=== PATIENT | male | born 1945 | race American Indian/Alaskan Native ===

== ENCOUNTER 2019-03-07 13:02 | Outpatient (CLI) | payer MEDICARE ==
[2019-03-07] MEDS ORDERED: AD OINTMENT TP SCH (14:00)
[2019-03-07] MEDS ORDERED: XYLOCAINE TOPICAL 4% TP ONE (14:00)
== END 2019-03-07 13:03 | disposition home or self-care (01) ==
LOC: WOUND 13:02
PROVIDERS: ATTEND Surgery
DX: E11.621 Type 2 diabetes mellitus with foot ulcer (principal); L97.422 Non-pressure chronic ulcer of left heel and midfoot with fat layer exposed; L97.511 Non-pressure chronic ulcer of other part of right foot limited to breakdown of skin; E11.622 Type 2 diabetes mellitus with other skin ulcer; L97.322 Non-pressure chronic ulcer of left ankle with fat layer exposed; L97.822 Non-pressure chronic ulcer of other part of left lower leg with fat layer exposed; I10 Essential (primary) hypertension
CPT/HCPCS: 11042; G0463; 99205; A6250

== ENCOUNTER 2019-03-08 06:13 | Inpatient (IN) | payer MEDICARE ==
[2019-03-08] MEDS ORDERED: PEPCID IV ONE ×2 (06:26→06:29)
[2019-03-08] MEDS ORDERED: BENADRYL IV ONE (06:26)
[2019-03-08] MEDS ORDERED: SOLU-Medrol IV ONE (06:26)
--- NOTE | 2019-03-08 06:26 | Emergency Department Report ---
ED Allergic Reaction HPI - General Stated complaint: ALLERGIC REACTION Time Seen by Provider: 03/08/19 06:20 Source: patient, family, EMS Mode of arrival: Stretcher Limitations: No Limitations - History of Present Illness Initial Comments: Patient is a 73-year-old male presents to emergency room with complaints of allergic reaction. Patient states she is having tongue swelling after taking Levaquin and Lasix. Patient states he's been able to take Cipro in the past without problems. Patient states she has never taken Levaquin or Lasix. Patient states he took the Levaquin at 12 noon yesterday and didn't notice any problems. Patient states he took Lasix last night at 6 PM and woke up this morning with this reaction. Patient states he is taking Levaquin for cellulitis of lower extremities and taking Lasix for edema of both extremities. Patient states his primary care gave the medications. Patient states his primary is Charbel Tovar. Patient states he only took his EpiPen at home Patient denies shortness of breath. Patient denies difficulty breathing. Patient denies throat pain. Patient denies rash. MD Complaint: allergic reaction -: Sudden Exposure: medication Symptoms: lip swelling, difficulty swallowing. denies: difficulty breathing, orolingual swelling, hoarseness, syncopy, dizziness, nausea, vomiting Severity: severe Treatment Prior to Arrival: none Previous Allergy History: angioedema (due to lisinopril) - Related Data Home Medications Medication Instructions Recorded Confirmed Last Taken Acetaminophen/Diphenhydramine 1 each PO PRN PRN 03/08/19 03/08/19 03/07/19 10:00 [Tylenol Pm Ex-Strength Caplet] AtorvaSTATin [Lipitor] 40 mg PO QHS 03/08/19 03/08/19 Unknown Carvedilol [Coreg] 12.5 mg PO BID 03/08/19 03/08/19 Unknown Ibuprofen [Motrin] 400 mg PO Q8H PRN 03/08/19 03/08/19 Unknown Potassium Chloride [K-Dur] 10 meq PO QDAY 03/08/19 03/08/19 Unknown Rivaroxaban [Xarelto] 20 mg PO QDAY 03/08/19 03/08/19 Unknown amLODIPine [Norvasc] 10 mg PO DAILY 03/08/19 03/08/19 Unknown traMADol [Ultram] 50 mg PO PRN PRN 03/08/19 03/08/19 Unknown Allergies Allergy/AdvReac Type Severity Reaction Status Date / Time amoxicillin [From Augmentin] Allergy Swelling Verified 03/08/19 06:34 apixaban [From Eliquis] Allergy Swelling Verified 03/08/19 06:34 clavulanic acid Allergy Swelling Verified 03/08/19 06:34 [From Augmentin] furosemide [From Lasix] Allergy Swelling Verified 03/08/19 12:39 levofloxacin Allergy Swelling Verified 03/08/19 12:39 lisinopril Allergy Swelling Verified 03/08/19 06:34 ED Review of Systems ROS: Stated complaint: ALLERGIC REACTION Other details as noted in HPI Constitutional: denies: chills, fever Eyes: denies: eye pain, eye discharge, vision change ENT: denies: ear pain, throat pain Respiratory: denies: cough, shortness of breath, wheezing Cardiovascular: denies: chest pain, palpitations Endocrine: no symptoms reported Gastrointestinal: denies: abdominal pain, nausea, diarrhea Genitourinary: denies: urgency, dysuria Musculoskeletal: denies: back pain, joint swelling, arthralgia Skin: denies: rash, lesions Neurological: denies: headache, weakness, paresthesias Psychiatric: denies: anxiety, depression Hematological/Lymphatic: denies: easy bleeding, easy bruising ED Past Medical Hx - Past Medical History Previous Medical History?: Yes Hx Hypertension: Yes Hx Diabetes: Yes Additional medical history: Afib - Surgical History Past Surgical History?: Yes Additional Surgical History: Pancreas surg - Family History Family history: no significant - Social History Smoking Status: Never Smoker Substance Use Type: None - Medications Home Medications: Home Medications Medication Instructions Recorded Confirmed Last Taken Type Acetaminophen/Diphenhydramine 1 each PO PRN PRN 03/08/19 03/08/19 03/07/19 10:00 History [Tylenol Pm Ex-Strength Caplet] AtorvaSTATin [Lipitor] 40 mg PO QHS 03/08/19 03/08/19 Unknown History Carvedilol [Coreg] 12.5 mg PO BID 03/08/19 03/08/19 Unknown History Ibuprofen [Motrin] 400 mg PO Q8H PRN 03/08/19 03/08/19 Unknown History Potassium Chloride [K-Dur] 10 meq PO QDAY 03/08/19 03/08/19 Unknown History Rivaroxaban [Xarelto] 20 mg PO QDAY 03/08/19 03/08/19 Unknown History amLODIPine [Norvasc] 10 mg PO DAILY 03/08/19 03/08/19 Unknown History traMADol [Ultram] 50 mg PO PRN PRN 03/08/19 03/08/19 Unknown History ED Physical Exam - General Limitations: No Limitations General appearance: alert, in no apparent distress - Head Head exam: Present: atraumatic, normocephalic - Eye Eye exam: Present: normal appearance, PERRL Pupils: Present: normal accommodation - ENT ENT exam: Present: normal orophraynx (except for swollen tongue), mucous membranes moist - Neck Neck exam: Present: normal inspection - Respiratory Respiratory exam: Present: normal lung sounds bilaterally. Absent: respiratory distress, wheezes, rales, rhonchi, stridor, accessory muscle use - Cardiovascular Cardiovascular Exam: Present: regular rate, normal rhythm. Absent: systolic murmur, diastolic murmur, rubs, gallop - GI/Abdominal GI/Abdominal exam: Present: soft, normal bowel sounds. Absent: distended, tenderness - Rectal Rectal exam: Present: deferred - Extremities Exam Extremities exam: Present: normal inspection - Back Exam Back exam: Present: normal inspection - Neurological Exam Neurological exam: Present: alert, oriented X3 - Psychiatric Psychiatric exam: Present: normal affect, normal mood - Skin Skin exam: Present: warm, dry, intact, normal color. Absent: rash ED Course Vital Signs 03/08/19 03/08/19 03/08/19 06:24 06:25 06:31 Temperature 98.7 F Pulse Rate 76 71 73 Respiratory 14 15 18 Rate Blood Pressure 117/68 122/63 Blood Pressure 117/76 [Right] O2 Sat by Pulse 82 L 98 98 Oximetry 03/08/19 03/08/19 03/08/19 06:45 07:00 07:15 Temperature Pulse Rate 66 63 61 Respiratory 13 14 14 Rate Blood Pressure 118/64 122/58 119/56 Blood Pressure [Right] O2 Sat by Pulse 100 99 99 Oximetry 03/08/19 03/08/19 03/08/19 07:30 07:45 08:00 Temperature Pulse Rate 62 62 65 Respiratory 14 14 17 Rate Blood Pressure 118/60 115/58 123/66 Blood Pressure [Right] O2 Sat by Pulse 100 100 99 Oximetry 03/08/19 03/08/19 03/08/19 08:15 08:30 08:45 Temperature Pulse Rate 59 L 60 57 L Respiratory 14 11 L 12 Rate Blood Pressure 122/62 130/65 116/61 Blood Pressure [Right] O2 Sat by Pulse 99 100 98 Oximetry 03/08/19 03/08/19 03/08/19 09:00 09:15 09:31 Temperature Pulse Rate 59 L 59 L 63 Respiratory 13 13 17 Rate Blood Pressure 121/54 109/56 113/66 Blood Pressure [Right] O2 Sat by Pulse 99 98 100 Oximetry 03/08/19 03/08/19 03/08/19 09:45 10:00 10:15 Temperature Pulse Rate 59 L 59 L 65 Respiratory 12 14 16 Rate Blood Pressure 119/61 114/55 122/67 Blood Pressure [Right] O2 Sat by Pulse 96 99 100 Oximetry 03/08/19 03/08/19 03/08/19 10:30 10:45 11:00 Temperature Pulse Rate 59 L 61 61 Respiratory 15 11 L 15 Rate Blood Pressure 129/64 120/65 131/65 Blood Pressure [Right] O2 Sat by Pulse 100 99 97 Oximetry 03/08/19 03/08/19 03/08/19 11:15 11:30 11:45 Temperature Pulse Rate 66 65 66 Respiratory 21 15 15 Rate Blood Pressure 136/72 137/69 133/73 Blood Pressure [Right] O2 Sat by Pulse 99 97 98 Oximetry 03/08/19 03/08/19 12:00 12:28 Temperature 98.2 F Pulse Rate 64 67 Respiratory 17 18 Rate Blood Pressure 137/71 128/70 Blood Pressure [Right] O2 Sat by Pulse 99 96 Oximetry - Reevaluation(s) Reevaluation #1: Patient will be given Medrol, Pepcid, and Benadryl 03/08/19 06:35 Patient states he is feeling better. No change noted in the size of the patient's tongue. No respiratory distress or stridor noted 03/08/19 07:10 Discussed all results with patient. Patient will be admitted to the hospitalist service. Patient agrees to plan of care. 03/08/19 09:48 - Consultations Consultation #1: Hospitalist consulted for admission. Hospitalist to admit patient. Hospitalist to assume care patient. Bridge orders placed 03/08/19 09:48 ED Medical Decision Making - Lab Data Result diagrams: 03/08/19 07:22 03/08/19 07:22 - Medical Decision Making Patient is a 73-year-old male presents emergency room with complaints of tongue swelling and angioedema. Patient having a reaction to Levaquin or Lasix. I feels most likely secondary to Lasix due to patient tolerating other f luoroquinolones. Patient given epi prior to arrival. Patient also given Solu- Medrol, Pepcid and Benadryl in the ER. Patient's tongue remains same size. Patient never had any difficulties breathing. Patient admitted for observation to the hospitalist service. Patient's labs are unremarkable except for low potassium. - Differential Diagnosis angioedema. Tongue swelling. Allergic reaction. Critical Care Time: Yes Critical care attestation.: If time is entered above; I have spent that time in minutes in the direct care of this critically ill patient, excluding procedure time. Critical Care Time: 35 minutes ED Disposition Clinical Impression: Tongue swelling, Hypokalemia Allergic reaction Qualifiers: Encounter type: initial encounter Qualified Code(s): T78.40XA - Allergy, unspecified, initial encounter Angioedema Qualifiers: Encounter type: initial encounter Qualified Code(s): T78.3XXA - Angioneurotic edema, initial encounter HTN (hypertension) Qualifiers: Hypertension type: essential hypertension Qualified Code(s): I10 - Essential (primary) hypertension Disposition: OP ADMIT IP TO THIS HOSP Is pt being admited?: Yes Does the pt Need Aspirin: No Condition: Critical Time of Disposition: 09:47
[2019-03-08] MEDS ORDERED: SOLU-Medrol ONE (06:28)
[2019-03-08] MEDS ORDERED: BENADRYL ONE ×2 (06:28→06:29)
[2019-03-08 07:32] LABS: Hematocrit 27.9 % (35.5-45.6); Hemoglobin 9.3 gm/dl (11.8-15.2); Mean Corpuscular HGB Conc 33 % (32-34); Mean Corpuscular Volume 80 fl (84-94); Platelet Count 484 K/mm3 (140-440); Red Blood Count 3.49 M/mm3 (3.65-5.03)
[2019-03-08 07:35] LABS: Red Cell Distribution Width 20.1 % (13.2-15.2)
[2019-03-08 07:56] LABS: Alanine Aminotransferase 11 units/L (7-56); Albumin 2.9 g/dL (3.9-5); BUN/Creatinine Ratio 10; Blood Urea Nitrogen 9 mg/dL (9-20); Calcium 8.3 mg/dL (8.4-10.2); Hemolysis Index 12
[2019-03-08] MEDS ORDERED: ZOFRAN IV PRN (11:09)
[2019-03-08] MEDS ORDERED: TYLENOL PO PRN (11:09)
[2019-03-08] MEDS ORDERED: BENADRYL IV PRN (11:09)
[2019-03-08] MEDS ORDERED: SODIUM CHLORIDE FLUSH SYRINGE 10 ML IV PRN (11:09)
[2019-03-08] MEDS ORDERED: D50W (25GM) Syringe IV PRN (11:09)
--- NOTE | 2019-03-08 11:09 | History and Physical Report ---
History of Present Illness Date of examination: 03/08/19 Date of admission: 03/08/19 10:17 History of present illness: Patient is a 73-year-old male presents to emergency room with complaints of allergic reaction. Patient states she is having tongue swelling after taking Levaquin and Lasix. Patient states he's been able to take Cipro in the past without problems. Patient states she has never taken Levaquin or Lasix. Patient states he took the Levaquin at 12 noon yesterday and didn't notice any problems. Patient states he took Lasix last night at 6 PM and woke up this morning with this reaction. Patient states he is taking Levaquin for cellulitis of lower extremities and taking Lasix for edema of both extremities. Patient states his primary care gave the medications. Patient states his primary is Charbel Tovar. Patient states he only took his EpiPen at home Past History Past Medical History: atrial fib, diabetes, hypertension, hyperlipidemia Past Surgical History: Other ( Pancreas surg) Social history: no significant social history Family history: no significant family history Medications and Allergies Allergies Allergy/AdvReac Type Severity Reaction Status Date / Time amoxicillin [From Augmentin] Allergy Swelling Verified 03/08/19 06:34 apixaban [From Eliquis] Allergy Swelling Verified 03/08/19 06:34 clavulanic acid Allergy Swelling Verified 03/08/19 06:34 [From Augmentin] lisinopril Allergy Swelling Verified 03/08/19 06:34 Home Medications Medication Instructions Recorded Confirmed Last Taken Type AtorvaSTATin [Lipitor] 40 mg PO QHS 03/08/19 03/08/19 Unknown History Carvedilol [Coreg] 12.5 mg PO BID 03/08/19 03/08/19 Unknown History Furosemide [Lasix TAB] 40 mg PO QDAY 03/08/19 03/08/19 Unknown History Ibuprofen [Motrin] 400 mg PO Q8H PRN 03/08/19 03/08/19 Unknown History Potassium Chloride [K-Dur] 10 meq PO QDAY 03/08/19 03/08/19 Unknown History Rivaroxaban [Xarelto] 20 mg PO QDAY 03/08/19 03/08/19 Unknown History amLODIPine [Norvasc] 10 mg PO DAILY 03/08/19 03/08/19 Unknown History levoFLOXacin [Levaquin] 750 mg PO QDAY 03/08/19 03/08/19 Unknown History traMADol [Ultram] 50 mg PO PRN PRN 03/08/19 03/08/19 Unknown History Review of Systems All systems: negative Exam - Constitutional Vitals: Temp Pulse Resp BP Pulse Ox 98.7 F 63 17 113/66 100 03/08/19 06:25 03/08/19 09:31 03/08/19 09:31 03/08/19 09:31 03/08/19 09:31 General appearance: Present: no acute distress, well-nourished - EENT Eyes: Present: PERRL ENT: hearing intact, clear oral mucosa - Neck Neck: Present: supple, normal ROM - Respiratory Respiratory effort: normal Respiratory: bilateral: CTA - Cardiovascular Heart Sounds: Present: S1 & S2. Absent: rub, click - Extremities Extremities: pulses symmetrical, No edema Peripheral Pulses: within normal limits - Abdominal General gastrointestinal: Present: soft, non-tender, non-distended, normal bowel sounds Male genitourinary: Present: normal - Integumentary Integumentary: Present: clear, warm, dry - Musculoskeletal Musculoskeletal: gait normal, strength equal bilaterally - Psychiatric Psychiatric: appropriate mood/affect, intact judgment & insight - Neurologic Neurologic: CNII-XII intact, moves all extremities Results - Labs CBC & Chem 7: 03/08/19 07:22 03/08/19 07:22 Labs: Laboratory Last Values WBC 13.9 K/mm3 (4.5-11.0) H 03/08/19 07:22 RBC 3.49 M/mm3 (3.65-5.03) L 03/08/19 07:22 Hgb 9.3 gm/dl (11.8-15.2) L 03/08/19 07:22 Hct 27.9 % (35.5-45.6) L 03/08/19 07:22 MCV 80 fl (84-94) L 03/08/19 07:22 MCH 27 pg (28-32) L 03/08/19 07:22 MCHC 33 % (32-34) 03/08/19 07:22 RDW 20.1 % (13.2-15.2) H 03/08/19 07:22 Plt Count 484 K/mm3 (140-440) H 03/08/19 07:22 Sodium 141 mmol/L (137-145) 03/08/19 07:22 Potassium 2.9 mmol/L (3.6-5.0) L* 03/08/19 07:22 Chloride 100.4 mmol/L (98-107) 03/08/19 07:22 Carbon Dioxide 28 mmol/L (22-30) 03/08/19 07:22 16 mmol/L 03/08/19 07:22 BUN 9 mg/dL (9-20) 03/08/19 07:22 0.9 mg/dL (0.8-1.5) 03/08/19 07:22 Estimated GFR > 60 ml/min 03/08/19 07:22 10 % 03/08/19 07:22 Glucose 144 mg/dL (75-100) H 03/08/19 07:22 POC Glucose 146 (70-105) H 03/08/19 08:11 Calcium 8.3 mg/dL (8.4-10.2) L 03/08/19 07:22 0.30 mg/dL (0.1-1.2) 03/08/19 07:22 AST 14 units/L (5-40) 03/08/19 07:22 ALT 11 units/L (7-56) 03/08/19 07:22 70 units/L (35-129) 03/08/19 07:22 6.9 g/dL (6.3-8.2) 03/08/19 07:22 2.9 g/dL (3.9-5) L 03/08/19 07:22 0.7 % 03/08/19 07:22 Assessment and Plan Assessment and plan: Angioedema/allergic reaction. Continue Solu-Medrol, Pepcid and Benadryl. Supportive care. Monitor for any respiratory decompensation or swallowing issues. Hypertension. Continue antihypertensive medications. Hyperlipidemia. Continue Lipitor. Diabetes mellitus type II. Continue Accu-Cheks, sliding scale insulin and ADA diet.
[2019-03-08] MEDS: HumuLIN R SUB-Q SCH ×3 (11:30→21:36)
[2019-03-08] MEDS: SODIUM CHLORIDE FLUSH SYRINGE 10 ML IV SCH (21:26)
[2019-03-08] MEDS: PEPCID IV SCH (21:26)
[2019-03-08] MEDS: SOLU-Medrol IV SCH (21:26)
[2019-03-09 06:55] LABS: Basophils % (Auto) 0.2 % (0.0-1.8); Hematocrit 30.8 % (35.5-45.6); Lymphocytes # (Auto) 1.1 K/mm3 (1.2-5.4); Lymphocytes % (Auto) 6.1 % (13.4-35.0); Mean Corpuscular HGB Conc 33 % (32-34); Mean Corpuscular Volume 81 fl (84-94); Monocytes % (Auto) 5.5 % (0.0-7.3); Platelet Count 533 K/mm3 (140-440)
[2019-03-09 07:10] LABS: BUN/Creatinine Ratio 15; Blood Urea Nitrogen 9 mg/dL (9-20); Calcium 8.8 mg/dL (8.4-10.2); Hemolysis Index 2
[2019-03-09 07:14] LABS: Red Cell Distribution Width 20.2 % (13.2-15.2)
[2019-03-09] MEDS: HumuLIN R SUB-Q SCH ×2 (08:15→12:16)
[2019-03-09 08:53] VITALS: BP 149/77
[2019-03-09] MEDS: PEPCID IV SCH (09:07)
[2019-03-09] MEDS: SOLU-Medrol IV SCH (09:08)
[2019-03-09] MEDS: SODIUM CHLORIDE FLUSH SYRINGE 10 ML IV SCH (09:08)
[2019-03-09] MEDS ORDERED: LOVENOX SUB-Q SCH (10:00)
--- NOTE | 2019-03-09 10:12 | Discharge Summary ---
Providers - Providers Date of Admission: 03/08/19 10:17 Date of discharge: 03/09/19 Attending physician: BECKY ANDERS Primary care physician: LAURA BLACK Hospitalization Reason for admission: allergic rxn/angioedema Condition: Critical Hospital course: Patient is a 73-year-old male presents to emergency room with complaints of allergic reaction. Patient stated he is having tongue swelling after taking Levaquin and Lasix. Patient states he's been able to take Cipro in the past without problems. Patient stated she has never taken Levaquin or Lasix. Patient stated he took the Levaquin at 12 noon the day [employer] and didn't notice any problems. Patient states he took Lasix the night [employer] at 6 PM and woke up the morning of admission with this reaction. Patient states he is taking Levaquin for cellulitis of lower extremities and taking Lasix for edema of both extremities. Patient states his primary care gave the medications. Patient states his primary is Charbel Liang. Patient states he only took his EpiPen at home. The patient was treated with IV Solu-Medrol, Pepcid and Benadryl. Patient has significant and dramatic improvement back to his baseline. Patient had no respiratory or swallowing issues. Therefore, patient is felt to have received maximal hospital benefit and will be discharged home. Dedicated discharge time 32 minutes. Disposition: - TO HOME OR SELFCARE Time spent for discharge: 32 - Discharge Diagnoses (1) Allergic reaction Status: Acute Qualifiers: Encounter type: initial encounter Qualified Code(s): T78.40XA - Allergy, unspecified, initial encounter (2) Angioedema Status: Acute Qualifiers: Encounter type: initial encounter Qualified Code(s): T78.3XXA - Angioneurotic edema, initial encounter (3) HTN (hypertension) Status: Acute Qualifiers: Hypertension type: essential hypertension Qualified Code(s): I10 - Essential (primary) hypertension (4) Tongue swelling Status: Acute (5) Diabetes mellitus type 1, uncontrolled, insulin dependent Status: Acute Core Measure Documentation - Palliative Care Palliative Care/ Comfort Measures: Not Applicable - Core Measures Any of the following diagnoses?: none Exam - Constitutional Vitals: Temp Pulse Resp BP Pulse Ox 98.5 F 78 18 149/77 98 03/09/19 07:17 03/09/19 08:53 03/09/19 08:53 03/09/19 07:17 03/09/19 08:53 General appearance: Present: no acute distress, well-nourished - EENT Eyes: Present: PERRL ENT: hearing intact, clear oral mucosa - Neck Neck: Present: supple, normal ROM - Respiratory Respiratory effort: normal Respiratory: bilateral: CTA - Cardiovascular Heart Sounds: Present: S1 & S2. Absent: rub, click - Extremities Extremities: pulses symmetrical, No edema Peripheral Pulses: within normal limits - Abdominal General gastrointestinal: Present: soft, non-tender, non-distended, normal bowel sounds Male genitourinary: Present: normal - Integumentary Integumentary: Present: clear, warm, dry - Musculoskeletal Musculoskeletal: gait normal, strength equal bilaterally - Psychiatric Psychiatric: appropriate mood/affect, intact judgment & insight - Neurologic Neurologic: CNII-XII intact, moves all extremities Plan Activity: advance as tolerated Weight Bearing Status: Weight Bear as Tolerated Diet: diabetic Follow up with: LAURA BLACK MD [Primary Care Provider] - 7 Days CHARBEL LIANG MD [Staff Physician] - 7 Days
== END 2019-03-09 12:25 | disposition home or self-care (01) | DRG 916 ==
LOC: ED 06:13 → 2B-ACE 10:17
PROVIDERS: ADMIT Hospitalist; ATTEND Hospitalist
DX: T78.3XXA Angioneurotic edema, initial encounter (principal); I10 Essential (primary) hypertension; T78.40XA Allergy, unspecified, initial encounter; I48.91 Unspecified atrial fibrillation; E11.9 Type 2 diabetes mellitus without complications; E78.5 Hyperlipidemia, unspecified; Z79.4 Long term (current) use of insulin; Z88.1 Allergy status to other antibiotic agents; Z79.899 Other long term (current) drug therapy
CPT/HCPCS: 36415; 80048; 80053; 82962; 85025; 85027; 87116; 96374; 96375; 99205; G0378; A6250; G0463; J1200; J1650; J1815; J2920; J2930

== ENCOUNTER 2019-03-14 08:51 | Outpatient (CLI) | payer MEDICARE ==
[2019-03-14] MEDS ORDERED: XYLOCAINE TOPICAL 4% TP ONE (09:30)
[2019-03-14] MEDS ORDERED: SILVER NITRATE TP ONE (09:30)
== END 2019-03-14 08:52 | disposition home or self-care (01) ==
LOC: WOUND 08:51
PROVIDERS: ATTEND Surgery
DX: T87.89 Other complications of amputation stump (principal); E11.621 Type 2 diabetes mellitus with foot ulcer; L97.522 Non-pressure chronic ulcer of other part of left foot with fat layer exposed; L97.511 Non-pressure chronic ulcer of other part of right foot limited to breakdown of skin; L97.422 Non-pressure chronic ulcer of left heel and midfoot with fat layer exposed; I10 Essential (primary) hypertension; Y83.5 Amputation of limb(s) as the cause of abnormal reaction of the patient, or of later complication, without mention of misadventure at the time of the procedure

== ENCOUNTER 2019-03-15 07:10 | Outpatient (CLI) | payer MEDICARE ==
--- NOTE | 2019-03-15 08:33 | XRay Report ---
ROUTINE CHEST, TWO VIEWS: HISTORY: Hyperbaric oxygen therapy. The trachea, heart, mediastinal contour, lung santos and bony thorax are unremarkable. IMPRESSION: Unremarkable chest x-ray.
== END 2019-03-15 07:11 | disposition home or self-care (01) ==
LOC: XRAY 07:10
PROVIDERS: ATTEND Surgery
DX: E11.621 Type 2 diabetes mellitus with foot ulcer (principal); L97.422 Non-pressure chronic ulcer of left heel and midfoot with fat layer exposed; I10 Essential (primary) hypertension
CPT/HCPCS: 71046

== ENCOUNTER 2019-03-18 07:39 | Outpatient (CLI) | payer MEDICARE | END 2019-03-18 07:40 | disposition home or self-care (01) | LOC: WOUND 07:39 | PROVIDERS: ATTEND Internal Medicine | DX: T87.89 Other complications of amputation stump (principal); E11.621 Type 2 diabetes mellitus with foot ulcer; L97.511 Non-pressure chronic ulcer of other part of right foot limited to breakdown of skin; L97.422 Non-pressure chronic ulcer of left heel and midfoot with fat layer exposed; I10 Essential (primary) hypertension; Y83.5 Amputation of limb(s) as the cause of abnormal reaction of the patient, or of later complication, without mention of misadventure at the time of the procedure | CPT/HCPCS: 82962; G0277; 99183 ==

== ENCOUNTER 2019-03-19 07:50 | Outpatient (CLI) | payer MEDICARE | END 2019-03-19 07:51 | disposition home or self-care (01) | LOC: WOUND 07:50 | PROVIDERS: ATTEND Surgery | DX: T87.89 Other complications of amputation stump (principal); E11.621 Type 2 diabetes mellitus with foot ulcer; L97.511 Non-pressure chronic ulcer of other part of right foot limited to breakdown of skin; L97.422 Non-pressure chronic ulcer of left heel and midfoot with fat layer exposed; I10 Essential (primary) hypertension; Y83.5 Amputation of limb(s) as the cause of abnormal reaction of the patient, or of later complication, without mention of misadventure at the time of the procedure | CPT/HCPCS: 82962; G0277; 99183 ==

== ENCOUNTER 2019-03-20 07:48 | Outpatient (CLI) | payer MEDICARE | END 2019-03-20 07:49 | disposition home or self-care (01) | LOC: WOUND 07:48 | PROVIDERS: ATTEND Surgery | DX: T87.89 Other complications of amputation stump (principal); E11.621 Type 2 diabetes mellitus with foot ulcer; L97.511 Non-pressure chronic ulcer of other part of right foot limited to breakdown of skin; L97.422 Non-pressure chronic ulcer of left heel and midfoot with fat layer exposed; I10 Essential (primary) hypertension; Y83.5 Amputation of limb(s) as the cause of abnormal reaction of the patient, or of later complication, without mention of misadventure at the time of the procedure | CPT/HCPCS: 82962; 99183; G0277 ==

== ENCOUNTER 2019-03-21 07:47 | Outpatient (CLI) | payer MEDICARE ==
[2019-03-21] MEDS ORDERED: XYLOCAINE TOPICAL 4% TP ONE (11:00)
== END 2019-03-21 07:48 | disposition home or self-care (01) ==
LOC: WOUND 07:47
PROVIDERS: ATTEND Surgery
DX: T87.89 Other complications of amputation stump (principal); E11.621 Type 2 diabetes mellitus with foot ulcer; L97.511 Non-pressure chronic ulcer of other part of right foot limited to breakdown of skin; L97.422 Non-pressure chronic ulcer of left heel and midfoot with fat layer exposed; I10 Essential (primary) hypertension; Y83.8 Other surgical procedures as the cause of abnormal reaction of the patient, or of later complication, without mention of misadventure at the time of the procedure
CPT/HCPCS: 11042; 11045; 82962; G0277; 99183

== ENCOUNTER 2019-03-22 07:46 | Outpatient (CLI) | payer MEDICARE | END 2019-03-22 07:47 | disposition home or self-care (01) | LOC: WOUND 07:46 | PROVIDERS: ATTEND Surgery | DX: T87.89 Other complications of amputation stump (principal); E11.621 Type 2 diabetes mellitus with foot ulcer; L97.511 Non-pressure chronic ulcer of other part of right foot limited to breakdown of skin; L97.422 Non-pressure chronic ulcer of left heel and midfoot with fat layer exposed; I10 Essential (primary) hypertension; Y83.8 Other surgical procedures as the cause of abnormal reaction of the patient, or of later complication, without mention of misadventure at the time of the procedure | CPT/HCPCS: 82962; 99183; G0277 ==

== ENCOUNTER 2019-03-25 07:57 | Outpatient (CLI) | payer MEDICARE | END 2019-03-25 07:58 | disposition home or self-care (01) | LOC: WOUND 07:57 | PROVIDERS: ATTEND Surgery | DX: T87.89 Other complications of amputation stump (principal); E11.621 Type 2 diabetes mellitus with foot ulcer; L97.511 Non-pressure chronic ulcer of other part of right foot limited to breakdown of skin; L97.422 Non-pressure chronic ulcer of left heel and midfoot with fat layer exposed; I10 Essential (primary) hypertension; Y83.8 Other surgical procedures as the cause of abnormal reaction of the patient, or of later complication, without mention of misadventure at the time of the procedure | CPT/HCPCS: 82962; 99183; G0277 ==

== ENCOUNTER 2019-03-26 07:49 | Outpatient (CLI) | payer MEDICARE | END 2019-03-26 07:50 | disposition home or self-care (01) | LOC: WOUND 07:49 | PROVIDERS: ATTEND Surgery | DX: E11.621 Type 2 diabetes mellitus with foot ulcer (principal); L97.422 Non-pressure chronic ulcer of left heel and midfoot with fat layer exposed; I10 Essential (primary) hypertension | CPT/HCPCS: 82962; G0277; 99183 ==

== ENCOUNTER 2019-03-27 07:47 | Outpatient (CLI) | payer MEDICARE | END 2019-03-27 07:48 | disposition home or self-care (01) | LOC: WOUND 07:47 | PROVIDERS: ATTEND Surgery | DX: E11.621 Type 2 diabetes mellitus with foot ulcer (principal); L97.422 Non-pressure chronic ulcer of left heel and midfoot with fat layer exposed; I10 Essential (primary) hypertension | CPT/HCPCS: 82962; G0277; 99183 ==

== ENCOUNTER 2019-03-28 07:56 | Outpatient (CLI) | payer MEDICARE ==
[2019-03-28] MEDS ORDERED: XYLOCAINE TOPICAL 4% TP ONE (11:36)
== END 2019-03-28 07:57 | disposition home or self-care (01) ==
LOC: WOUND 07:56
PROVIDERS: ATTEND Surgery
DX: T87.89 Other complications of amputation stump (principal); E11.621 Type 2 diabetes mellitus with foot ulcer; L97.422 Non-pressure chronic ulcer of left heel and midfoot with fat layer exposed; I10 Essential (primary) hypertension; Y83.5 Amputation of limb(s) as the cause of abnormal reaction of the patient, or of later complication, without mention of misadventure at the time of the procedure
CPT/HCPCS: 11042; 11045; 82962; G0277; 99183

== ENCOUNTER 2019-03-29 07:50 | Outpatient (CLI) | payer MEDICARE | END 2019-03-29 07:51 | disposition home or self-care (01) | LOC: WOUND 07:50 | PROVIDERS: ATTEND Surgery | DX: T87.89 Other complications of amputation stump (principal); E11.621 Type 2 diabetes mellitus with foot ulcer; L97.422 Non-pressure chronic ulcer of left heel and midfoot with fat layer exposed; I10 Essential (primary) hypertension; Y83.5 Amputation of limb(s) as the cause of abnormal reaction of the patient, or of later complication, without mention of misadventure at the time of the procedure | CPT/HCPCS: 82962; G0277; 99183 ==

== ENCOUNTER 2019-04-01 07:50 | Outpatient (CLI) | payer MEDICARE | END 2019-04-01 07:51 | disposition home or self-care (01) | LOC: WOUND 07:50 | PROVIDERS: ATTEND Surgery | DX: T87.89 Other complications of amputation stump (principal); E11.621 Type 2 diabetes mellitus with foot ulcer; L97.422 Non-pressure chronic ulcer of left heel and midfoot with fat layer exposed; I10 Essential (primary) hypertension; Y83.5 Amputation of limb(s) as the cause of abnormal reaction of the patient, or of later complication, without mention of misadventure at the time of the procedure | CPT/HCPCS: 82962; G0277; 99183 ==

== ENCOUNTER 2019-04-02 07:48 | Outpatient (CLI) | payer MEDICARE | END 2019-04-02 07:49 | disposition home or self-care (01) | LOC: WOUND 07:48 | PROVIDERS: ATTEND Surgery | DX: T87.89 Other complications of amputation stump (principal); E11.621 Type 2 diabetes mellitus with foot ulcer; L97.422 Non-pressure chronic ulcer of left heel and midfoot with fat layer exposed; I10 Essential (primary) hypertension; Y83.5 Amputation of limb(s) as the cause of abnormal reaction of the patient, or of later complication, without mention of misadventure at the time of the procedure | CPT/HCPCS: 82962; 99183; G0277 ==

== ENCOUNTER 2019-04-03 08:02 | Outpatient (CLI) | payer MEDICARE | END 2019-04-03 08:03 | disposition home or self-care (01) | LOC: WOUND 08:02 | PROVIDERS: ATTEND Surgery | DX: T87.89 Other complications of amputation stump (principal); E11.621 Type 2 diabetes mellitus with foot ulcer; L97.422 Non-pressure chronic ulcer of left heel and midfoot with fat layer exposed; I10 Essential (primary) hypertension; Y83.5 Amputation of limb(s) as the cause of abnormal reaction of the patient, or of later complication, without mention of misadventure at the time of the procedure | CPT/HCPCS: 82962; 99183; G0277 ==

== ENCOUNTER 2019-04-04 07:49 | Outpatient (CLI) | payer MEDICARE ==
[2019-04-04] MEDS ORDERED: XYLOCAINE TOPICAL 4% TP NR (10:00)
[2019-04-04] MEDS ORDERED: SILVER NITRATE TP NR (10:00)
== END 2019-04-04 07:50 | disposition home or self-care (01) ==
LOC: WOUND 07:49
PROVIDERS: ATTEND Surgery
DX: T87.89 Other complications of amputation stump (principal); E11.621 Type 2 diabetes mellitus with foot ulcer; L97.422 Non-pressure chronic ulcer of left heel and midfoot with fat layer exposed; I10 Essential (primary) hypertension; Y83.5 Amputation of limb(s) as the cause of abnormal reaction of the patient, or of later complication, without mention of misadventure at the time of the procedure
CPT/HCPCS: 11042; 11045; G0277; 82962; 99183

== ENCOUNTER 2019-04-05 07:57 | Outpatient (CLI) | payer MEDICARE | END 2019-04-05 07:58 | disposition home or self-care (01) | LOC: WOUND 07:57 | PROVIDERS: ATTEND Surgery | DX: E11.621 Type 2 diabetes mellitus with foot ulcer (principal); L97.422 Non-pressure chronic ulcer of left heel and midfoot with fat layer exposed; I10 Essential (primary) hypertension | CPT/HCPCS: 82962; G0277; 99183 ==

== ENCOUNTER 2019-04-08 07:59 | Outpatient (CLI) | payer MEDICARE | END 2019-04-08 08:00 | disposition home or self-care (01) | LOC: WOUND 07:59 | PROVIDERS: ATTEND Surgery | DX: E11.621 Type 2 diabetes mellitus with foot ulcer (principal); L97.422 Non-pressure chronic ulcer of left heel and midfoot with fat layer exposed; I10 Essential (primary) hypertension | CPT/HCPCS: 82962; G0277; 99183 ==

== ENCOUNTER 2019-04-09 07:54 | Outpatient (CLI) | payer MEDICARE | END 2019-04-09 07:55 | disposition home or self-care (01) | LOC: WOUND 07:54 | PROVIDERS: ATTEND Surgery | DX: E11.621 Type 2 diabetes mellitus with foot ulcer (principal); L97.422 Non-pressure chronic ulcer of left heel and midfoot with fat layer exposed; I10 Essential (primary) hypertension | CPT/HCPCS: 82962; 99183; G0277 ==

== ENCOUNTER 2019-04-10 07:48 | Outpatient (CLI) | payer MEDICARE ==
[2019-04-10] MEDS ORDERED: SILVER NITRATE TP ONE ×2 (10:57)
[2019-04-10] MEDS ORDERED: XYLOCAINE TOPICAL 4% TP ONE (11:00)
== END 2019-04-10 07:49 | disposition home or self-care (01) ==
LOC: WOUND 07:48
PROVIDERS: ATTEND Surgery
DX: T87.89 Other complications of amputation stump (principal); E11.621 Type 2 diabetes mellitus with foot ulcer; L97.422 Non-pressure chronic ulcer of left heel and midfoot with fat layer exposed; I10 Essential (primary) hypertension; Y83.5 Amputation of limb(s) as the cause of abnormal reaction of the patient, or of later complication, without mention of misadventure at the time of the procedure
CPT/HCPCS: 11042; 11045; 82962; G0277; 99183

== ENCOUNTER 2019-04-12 07:54 | Outpatient (CLI) | payer MEDICARE | END 2019-04-12 07:55 | disposition home or self-care (01) | LOC: WOUND 07:54 | PROVIDERS: ATTEND Surgery | DX: T87.89 Other complications of amputation stump (principal); E11.621 Type 2 diabetes mellitus with foot ulcer; L97.422 Non-pressure chronic ulcer of left heel and midfoot with fat layer exposed; I10 Essential (primary) hypertension; Y83.5 Amputation of limb(s) as the cause of abnormal reaction of the patient, or of later complication, without mention of misadventure at the time of the procedure | CPT/HCPCS: 82962; 99183; G0277 ==

== ENCOUNTER 2019-04-15 07:51 | Outpatient (CLI) | payer MEDICARE | END 2019-04-15 07:52 | disposition home or self-care (01) | LOC: WOUND 07:51 | PROVIDERS: ATTEND Surgery | DX: E11.621 Type 2 diabetes mellitus with foot ulcer (principal); L97.422 Non-pressure chronic ulcer of left heel and midfoot with fat layer exposed; I10 Essential (primary) hypertension | CPT/HCPCS: 82962; G0277; 99183 ==

== ENCOUNTER 2019-04-16 07:48 | Outpatient (CLI) | payer MEDICARE ==
[2019-04-16] MEDS ORDERED: SILVER NITRATE TP ONE (10:25)
[2019-04-16] MEDS ORDERED: XYLOCAINE TOPICAL 4% TP ONE (10:25)
== END 2019-04-16 07:49 | disposition home or self-care (01) ==
LOC: WOUND 07:48
PROVIDERS: ATTEND Surgery
DX: T87.89 Other complications of amputation stump (principal); E11.621 Type 2 diabetes mellitus with foot ulcer; L97.422 Non-pressure chronic ulcer of left heel and midfoot with fat layer exposed; I10 Essential (primary) hypertension; Y83.5 Amputation of limb(s) as the cause of abnormal reaction of the patient, or of later complication, without mention of misadventure at the time of the procedure
CPT/HCPCS: 11042; 11045; G0277; 82962; 99183

== ENCOUNTER 2019-04-17 07:48 | Outpatient (CLI) | payer MEDICARE | END 2019-04-17 07:49 | disposition home or self-care (01) | LOC: WOUND 07:48 | PROVIDERS: ATTEND Surgery | DX: T87.89 Other complications of amputation stump (principal); E11.621 Type 2 diabetes mellitus with foot ulcer; L97.422 Non-pressure chronic ulcer of left heel and midfoot with fat layer exposed; I10 Essential (primary) hypertension; Y83.5 Amputation of limb(s) as the cause of abnormal reaction of the patient, or of later complication, without mention of misadventure at the time of the procedure | CPT/HCPCS: 82962; G0277; 99183 ==

== ENCOUNTER 2019-04-19 07:55 | Outpatient (CLI) | payer MEDICARE | END 2019-04-19 07:56 | disposition home or self-care (01) | LOC: WOUND 07:55 | PROVIDERS: ATTEND Surgery | DX: T87.89 Other complications of amputation stump (principal); E11.621 Type 2 diabetes mellitus with foot ulcer; L97.422 Non-pressure chronic ulcer of left heel and midfoot with fat layer exposed; I10 Essential (primary) hypertension; Y83.5 Amputation of limb(s) as the cause of abnormal reaction of the patient, or of later complication, without mention of misadventure at the time of the procedure | CPT/HCPCS: 82962; 99183; G0277 ==

== ENCOUNTER 2019-04-22 07:44 | Outpatient (CLI) | payer MEDICARE | END 2019-04-22 07:45 | disposition home or self-care (01) | LOC: WOUND 07:44 | PROVIDERS: ATTEND Surgery | DX: T87.89 Other complications of amputation stump (principal); E11.621 Type 2 diabetes mellitus with foot ulcer; L97.422 Non-pressure chronic ulcer of left heel and midfoot with fat layer exposed; I10 Essential (primary) hypertension; Y83.5 Amputation of limb(s) as the cause of abnormal reaction of the patient, or of later complication, without mention of misadventure at the time of the procedure | CPT/HCPCS: 82962; G0277; 99183 ==

== ENCOUNTER 2019-04-23 09:49 | Outpatient (CLI) | payer MEDICARE | END 2019-04-23 09:50 | disposition home or self-care (01) | LOC: WOUND 09:49 | PROVIDERS: ATTEND Surgery | DX: T87.89 Other complications of amputation stump (principal); E11.621 Type 2 diabetes mellitus with foot ulcer; L97.422 Non-pressure chronic ulcer of left heel and midfoot with fat layer exposed; I10 Essential (primary) hypertension; Y83.5 Amputation of limb(s) as the cause of abnormal reaction of the patient, or of later complication, without mention of misadventure at the time of the procedure | CPT/HCPCS: 99183; G0277 ==

== ENCOUNTER 2019-04-24 07:49 | Outpatient (CLI) | payer MEDICARE | END 2019-04-24 07:50 | disposition home or self-care (01) | LOC: WOUND 07:49 | PROVIDERS: ATTEND Surgery | DX: T87.89 Other complications of amputation stump (principal); E11.621 Type 2 diabetes mellitus with foot ulcer; L97.422 Non-pressure chronic ulcer of left heel and midfoot with fat layer exposed; I10 Essential (primary) hypertension; Y83.5 Amputation of limb(s) as the cause of abnormal reaction of the patient, or of later complication, without mention of misadventure at the time of the procedure | CPT/HCPCS: 82962; G0277; 99183 ==

== ENCOUNTER 2019-04-25 06:54 | Outpatient (CLI) | payer MEDICARE ==
[2019-04-25] MEDS ORDERED: XYLOCAINE TOPICAL 4% TP ONE (10:00)
== END 2019-04-25 06:55 | disposition home or self-care (01) ==
LOC: WOUND 06:54
PROVIDERS: ATTEND Surgery
DX: T87.89 Other complications of amputation stump (principal); E11.621 Type 2 diabetes mellitus with foot ulcer; L97.422 Non-pressure chronic ulcer of left heel and midfoot with fat layer exposed; I10 Essential (primary) hypertension; Y83.5 Amputation of limb(s) as the cause of abnormal reaction of the patient, or of later complication, without mention of misadventure at the time of the procedure
CPT/HCPCS: 11042; 11045; 82962; G0277; 99183

== ENCOUNTER 2019-04-29 07:47 | Outpatient (CLI) | payer MEDICARE | END 2019-04-29 07:48 | disposition home or self-care (01) | LOC: WOUND 07:47 | PROVIDERS: ATTEND Surgery | DX: T87.89 Other complications of amputation stump (principal); E11.621 Type 2 diabetes mellitus with foot ulcer; L97.422 Non-pressure chronic ulcer of left heel and midfoot with fat layer exposed; I10 Essential (primary) hypertension; Y83.5 Amputation of limb(s) as the cause of abnormal reaction of the patient, or of later complication, without mention of misadventure at the time of the procedure | CPT/HCPCS: 82962; 99183; G0277 ==

== ENCOUNTER 2019-04-30 07:47 | Outpatient (CLI) | payer MEDICARE | END 2019-04-30 07:48 | disposition home or self-care (01) | LOC: WOUND 07:47 | PROVIDERS: ATTEND Surgery | DX: E11.621 Type 2 diabetes mellitus with foot ulcer (principal); L97.422 Non-pressure chronic ulcer of left heel and midfoot with fat layer exposed; I10 Essential (primary) hypertension | CPT/HCPCS: 82962; G0277; 99183 ==

== ENCOUNTER 2019-05-01 07:48 | Outpatient (CLI) | payer MEDICARE ==
[2019-05-01] MEDS ORDERED: SILVER NITRATE TP ONE (09:30)
[2019-05-01] MEDS ORDERED: XYLOCAINE TOPICAL 4% TP ONE (09:30)
[2019-05-01] MEDS ORDERED: AD OINTMENT TP PRN (11:30)
== END 2019-05-01 07:49 | disposition home or self-care (01) ==
LOC: WOUND 07:48
PROVIDERS: ATTEND Surgery
DX: E11.621 Type 2 diabetes mellitus with foot ulcer (principal); L97.422 Non-pressure chronic ulcer of left heel and midfoot with fat layer exposed; I10 Essential (primary) hypertension
CPT/HCPCS: 11042; 11045; 82962; G0277; 99183

== ENCOUNTER 2019-05-03 07:46 | Outpatient (CLI) | payer MEDICARE | END 2019-05-03 07:47 | disposition home or self-care (01) | LOC: WOUND 07:46 | PROVIDERS: ATTEND Surgery | DX: E11.621 Type 2 diabetes mellitus with foot ulcer (principal); L97.422 Non-pressure chronic ulcer of left heel and midfoot with fat layer exposed; I10 Essential (primary) hypertension | CPT/HCPCS: 82962; G0277; 99183 ==

== ENCOUNTER 2019-05-06 07:54 | Outpatient (CLI) | payer MEDICARE | END 2019-05-06 07:55 | disposition home or self-care (01) | LOC: WOUND 07:54 | PROVIDERS: ATTEND Surgery | DX: E11.621 Type 2 diabetes mellitus with foot ulcer (principal); L97.422 Non-pressure chronic ulcer of left heel and midfoot with fat layer exposed; I10 Essential (primary) hypertension | CPT/HCPCS: 82962; G0277; 99183 ==

== ENCOUNTER 2019-05-07 07:47 | Outpatient (CLI) | payer MEDICARE | END 2019-05-07 07:48 | disposition home or self-care (01) | LOC: WOUND 07:47 | PROVIDERS: ATTEND Surgery | DX: E11.621 Type 2 diabetes mellitus with foot ulcer (principal); L97.422 Non-pressure chronic ulcer of left heel and midfoot with fat layer exposed; I10 Essential (primary) hypertension | CPT/HCPCS: 82962; G0277; 99183 ==

== ENCOUNTER 2019-05-08 07:49 | Outpatient (CLI) | payer MEDICARE | END 2019-05-08 07:50 | disposition home or self-care (01) | LOC: WOUND 07:49 | PROVIDERS: ATTEND Surgery | DX: E11.621 Type 2 diabetes mellitus with foot ulcer (principal); L97.422 Non-pressure chronic ulcer of left heel and midfoot with fat layer exposed; I10 Essential (primary) hypertension | CPT/HCPCS: 11042; 82962; G0277; 99183 ==

== ENCOUNTER 2019-05-09 07:48 | Outpatient (CLI) | payer MEDICARE | END 2019-05-09 07:49 | disposition home or self-care (01) | LOC: WOUND 07:48 | PROVIDERS: ATTEND Surgery | DX: E11.621 Type 2 diabetes mellitus with foot ulcer (principal); L97.422 Non-pressure chronic ulcer of left heel and midfoot with fat layer exposed; I10 Essential (primary) hypertension | CPT/HCPCS: 82962; G0277; 99183 ==

== ENCOUNTER 2019-05-10 07:49 | Outpatient (CLI) | payer MEDICARE | END 2019-05-10 07:50 | disposition home or self-care (01) | LOC: WOUND 07:49 | PROVIDERS: ATTEND Surgery | DX: E11.621 Type 2 diabetes mellitus with foot ulcer (principal); L97.422 Non-pressure chronic ulcer of left heel and midfoot with fat layer exposed; I10 Essential (primary) hypertension | CPT/HCPCS: 82962; 99183; G0277 ==

== ENCOUNTER 2019-05-13 07:51 | Outpatient (CLI) | payer MEDICARE | END 2019-05-13 07:52 | disposition home or self-care (01) | LOC: WOUND 07:51 | PROVIDERS: ATTEND Surgery | DX: E11.621 Type 2 diabetes mellitus with foot ulcer (principal); L97.422 Non-pressure chronic ulcer of left heel and midfoot with fat layer exposed; I10 Essential (primary) hypertension | CPT/HCPCS: 82962; 99183; G0277 ==

== ENCOUNTER 2019-05-14 12:47 | Outpatient (CLI) | payer MEDICARE | END 2019-05-14 12:48 | disposition home or self-care (01) | LOC: WOUND 12:47 | PROVIDERS: ATTEND Surgery | DX: E11.621 Type 2 diabetes mellitus with foot ulcer (principal); L97.422 Non-pressure chronic ulcer of left heel and midfoot with fat layer exposed; I10 Essential (primary) hypertension | CPT/HCPCS: 82962; 99183; G0277 ==

== ENCOUNTER 2019-05-15 09:51 | Outpatient (CLI) | payer MEDICARE | END 2019-05-15 09:52 | disposition home or self-care (01) | LOC: WOUND 09:51 | PROVIDERS: ATTEND Surgery | DX: E11.621 Type 2 diabetes mellitus with foot ulcer (principal); L97.422 Non-pressure chronic ulcer of left heel and midfoot with fat layer exposed; I10 Essential (primary) hypertension | CPT/HCPCS: 82962; G0277; 99183 ==

== ENCOUNTER 2019-05-16 09:43 | Outpatient (CLI) | payer MEDICARE ==
[2019-05-16] MEDS ORDERED: XYLOCAINE TOPICAL 4% TP ONE (12:03)
[2019-05-16] MEDS ORDERED: SODIUM CHLORIDE FLUSH SYRINGE 10 ML IV ONE (12:04)
== END 2019-05-16 09:44 | disposition home or self-care (01) ==
LOC: WOUND 09:43
PROVIDERS: ATTEND Surgery
DX: T87.89 Other complications of amputation stump (principal); E11.621 Type 2 diabetes mellitus with foot ulcer; L97.422 Non-pressure chronic ulcer of left heel and midfoot with fat layer exposed; I10 Essential (primary) hypertension; Y83.5 Amputation of limb(s) as the cause of abnormal reaction of the patient, or of later complication, without mention of misadventure at the time of the procedure
CPT/HCPCS: 15275; 82962; G0277; Q4158; 99183

== ENCOUNTER 2019-05-23 08:54 | Outpatient (CLI) | payer MEDICARE ==
[2019-05-23] MEDS ORDERED: SODIUM CHLORIDE FLUSH SYRINGE 10 ML IV PRN (09:26)
[2019-05-23] MEDS ORDERED: XYLOCAINE TOPICAL 4% TP ONE (09:30)
[2019-05-23] MEDS ORDERED: SILVER NITRATE TP ONE (10:00)
== END 2019-05-23 08:55 | disposition home or self-care (01) ==
LOC: WOUND 08:54
PROVIDERS: ATTEND Surgery
DX: T87.89 Other complications of amputation stump (principal); E11.621 Type 2 diabetes mellitus with foot ulcer; L97.422 Non-pressure chronic ulcer of left heel and midfoot with fat layer exposed; I10 Essential (primary) hypertension; Y83.5 Amputation of limb(s) as the cause of abnormal reaction of the patient, or of later complication, without mention of misadventure at the time of the procedure
CPT/HCPCS: 15275; Q4158

== ENCOUNTER 2019-05-30 08:38 | Outpatient (CLI) | payer MEDICARE ==
[2019-05-30] MEDS ORDERED: XYLOCAINE TOPICAL 4% TP ONE (09:30)
[2019-05-30] MEDS ORDERED: SODIUM CHLORIDE FLUSH SYRINGE 10 ML IV ONE (10:00)
[2019-05-30] MEDS ORDERED: SILVER NITRATE TP ONE (10:00)
== END 2019-05-30 08:39 | disposition home or self-care (01) ==
LOC: WOUND 08:38
PROVIDERS: ATTEND Surgery
DX: T87.89 Other complications of amputation stump (principal); E11.621 Type 2 diabetes mellitus with foot ulcer; L97.521 Non-pressure chronic ulcer of other part of left foot limited to breakdown of skin; L97.422 Non-pressure chronic ulcer of left heel and midfoot with fat layer exposed; I10 Essential (primary) hypertension; Y83.5 Amputation of limb(s) as the cause of abnormal reaction of the patient, or of later complication, without mention of misadventure at the time of the procedure
CPT/HCPCS: 15275; Q4158

== ENCOUNTER 2019-06-06 09:27 | Outpatient (CLI) | payer MEDICARE ==
[2019-06-06] MEDS ORDERED: SODIUM CHLORIDE FLUSH SYRINGE 10 ML IV ONE (09:54)
[2019-06-06] MEDS ORDERED: XYLOCAINE TOPICAL 4% TP ONE (10:00)
[2019-06-06] MEDS ORDERED: SILVER NITRATE TP ONE (10:00)
== END 2019-06-06 09:28 | disposition home or self-care (01) ==
LOC: WOUND 09:27
PROVIDERS: ATTEND Surgery
DX: T87.89 Other complications of amputation stump (principal); E11.621 Type 2 diabetes mellitus with foot ulcer; L97.521 Non-pressure chronic ulcer of other part of left foot limited to breakdown of skin; L97.422 Non-pressure chronic ulcer of left heel and midfoot with fat layer exposed; I10 Essential (primary) hypertension; Y83.5 Amputation of limb(s) as the cause of abnormal reaction of the patient, or of later complication, without mention of misadventure at the time of the procedure

== ENCOUNTER 2019-06-13 09:33 | Outpatient (CLI) | payer MEDICARE ==
[2019-06-13] MEDS ORDERED: SODIUM CHLORIDE FLUSH SYRINGE 10 ML IV ONE (10:00)
[2019-06-13] MEDS ORDERED: XYLOCAINE TOPICAL 4% TP ONE (10:00)
[2019-06-13] MEDS ORDERED: SILVER NITRATE TP ONE (10:30)
== END 2019-06-13 09:34 | disposition home or self-care (01) ==
LOC: WOUND 09:33
PROVIDERS: ATTEND Surgery
DX: T87.89 Other complications of amputation stump (principal); E11.621 Type 2 diabetes mellitus with foot ulcer; L97.521 Non-pressure chronic ulcer of other part of left foot limited to breakdown of skin; L97.422 Non-pressure chronic ulcer of left heel and midfoot with fat layer exposed; I10 Essential (primary) hypertension; Y83.5 Amputation of limb(s) as the cause of abnormal reaction of the patient, or of later complication, without mention of misadventure at the time of the procedure

== ENCOUNTER 2019-06-20 09:27 | Outpatient (CLI) | payer MEDICARE ==
[2019-06-20] MEDS ORDERED: SILVER NITRATE TP ONE (10:08)
[2019-06-20] MEDS ORDERED: XYLOCAINE TOPICAL 4% TP ONE (10:30)
== END 2019-06-20 09:28 | disposition home or self-care (01) ==
LOC: WOUND 09:27
PROVIDERS: ATTEND Surgery
DX: T87.89 Other complications of amputation stump (principal); E11.621 Type 2 diabetes mellitus with foot ulcer; L97.521 Non-pressure chronic ulcer of other part of left foot limited to breakdown of skin; L97.422 Non-pressure chronic ulcer of left heel and midfoot with fat layer exposed; I10 Essential (primary) hypertension; Y83.5 Amputation of limb(s) as the cause of abnormal reaction of the patient, or of later complication, without mention of misadventure at the time of the procedure

== ENCOUNTER 2019-06-27 09:23 | Outpatient (CLI) | payer MEDICARE ==
[2019-06-27] MEDS ORDERED: SILVER NITRATE TP ONE (09:32)
[2019-06-27] MEDS ORDERED: XYLOCAINE TOPICAL 4% TP ONE (09:32)
== END 2019-06-27 09:24 | disposition home or self-care (01) ==
LOC: WOUND 09:23
PROVIDERS: ATTEND Surgery
DX: T87.89 Other complications of amputation stump (principal); E11.621 Type 2 diabetes mellitus with foot ulcer; L97.521 Non-pressure chronic ulcer of other part of left foot limited to breakdown of skin; L97.422 Non-pressure chronic ulcer of left heel and midfoot with fat layer exposed; I10 Essential (primary) hypertension; Y83.5 Amputation of limb(s) as the cause of abnormal reaction of the patient, or of later complication, without mention of misadventure at the time of the procedure

== ENCOUNTER 2019-07-11 09:34 | Outpatient (CLI) | payer MEDICARE ==
[2019-07-11] MEDS ORDERED: SILVER NITRATE APPLICATOR 1 EA TP ONE (10:30)
== END 2019-07-11 09:35 | disposition home or self-care (01) ==
LOC: WOUND 09:34
PROVIDERS: ATTEND Surgery
DX: T87.89 Other complications of amputation stump (principal); E11.621 Type 2 diabetes mellitus with foot ulcer; L97.521 Non-pressure chronic ulcer of other part of left foot limited to breakdown of skin; L97.422 Non-pressure chronic ulcer of left heel and midfoot with fat layer exposed; I10 Essential (primary) hypertension; Y83.5 Amputation of limb(s) as the cause of abnormal reaction of the patient, or of later complication, without mention of misadventure at the time of the procedure

== ENCOUNTER 2019-07-18 09:39 | Outpatient (CLI) | payer MEDICARE ==
[2019-07-18] MEDS ORDERED: SILVER NITRATE TP ONE (10:15)
[2019-07-18] MEDS ORDERED: XYLOCAINE TOPICAL 4% TP ONE (10:15)
== END 2019-07-18 09:40 | disposition home or self-care (01) ==
LOC: WOUND 09:39
PROVIDERS: ATTEND Surgery
DX: T87.89 Other complications of amputation stump (principal); E11.621 Type 2 diabetes mellitus with foot ulcer; L97.422 Non-pressure chronic ulcer of left heel and midfoot with fat layer exposed; L84 Corns and callosities; I10 Essential (primary) hypertension; Y83.5 Amputation of limb(s) as the cause of abnormal reaction of the patient, or of later complication, without mention of misadventure at the time of the procedure

== ENCOUNTER 2019-07-25 09:31 | Outpatient (CLI) | payer MEDICARE | END 2019-07-25 09:32 | disposition home or self-care (01) | LOC: WOUND 09:31 | PROVIDERS: ATTEND Surgery | DX: T87.89 Other complications of amputation stump (principal); E11.621 Type 2 diabetes mellitus with foot ulcer; L97.422 Non-pressure chronic ulcer of left heel and midfoot with fat layer exposed; L84 Corns and callosities; I10 Essential (primary) hypertension; Y83.5 Amputation of limb(s) as the cause of abnormal reaction of the patient, or of later complication, without mention of misadventure at the time of the procedure ==

== ENCOUNTER 2019-07-30 08:07 | Emergency (ER) | payer MEDICARE ==
--- NOTE | 2019-07-30 08:48 | Emergency Department Report ---
ED Abdominal Pain HPI - General Chief Complaint: Abdominal Pain Stated Complaint: ABD PAIN Time Seen by Provider: 07/30/19 08:37 Source: EMS Mode of arrival: Stretcher Limitations: No Limitations - History of Present Illness Initial Comments: 73-year-old male states that he has not felt similar pains since he had pancreatitis a year ago. He is a poor historian. 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 He states that he woke up this morning and he experienced 15 minutes of throbbing pain in the left lower quadrant of his abdomen which did not radiate. He was not nauseated did not vomit. He has not had any recent fever or chills. He states he had a normal bowel movement yesterday. He is essentially asymptomatic at this time. Does state he is hungry. He checked his sugar this morning and it was 230. MD Complaint: abdominal pain -: minutes(s) Location: [facility] Radiation: none Migration to: no migration Severity: moderate Quality: other Consistency: now resolved Improves With: nothing Worsens With: nothing Context: other (history of pancreatitis) Associated Symptoms: denies other symptoms - Related Data Home Medications Medication Instructions Recorded Confirmed Last Taken Acetaminophen/Diphenhydramine 1 each PO PRN PRN 03/08/19 03/08/19 03/07/19 10:00 [Tylenol Pm Ex-Strength Caplet] AtorvaSTATin [Lipitor] 40 mg PO QHS 03/08/19 03/08/19 Unknown Carvedilol [Coreg] 12.5 mg PO BID 03/08/19 03/08/19 Unknown Ibuprofen [Motrin 400 MG tab] 400 mg PO Q8H PRN 03/08/19 03/08/19 Unknown Potassium Chloride [K-Dur] 10 meq PO QDAY 03/08/19 03/08/19 Unknown Rivaroxaban [Xarelto] 20 mg PO QDAY 03/08/19 03/08/19 Unknown amLODIPine [Norvasc] 10 mg PO DAILY 03/08/19 03/08/19 Unknown traMADol [Ultram 50 MG tab] 50 mg PO PRN PRN 03/08/19 03/08/19 Unknown Previous Rx's Medication Instructions Recorded Last Taken Type Acetaminophen [Acetaminophen TAB] 650 mg PO Q4H PRN tablet 03/09/19 Unknown Rx Famotidine [Pepcid] 20 mg PO BID #20 tablet 03/09/19 Unknown Rx diphenhydrAMINE [Benadryl CAP] 25 mg PO Q6HR #10 capsule 03/09/19 Unknown Rx methylPREDNISolone [Medrol 4MG 4 mg PO QAM #1 tab.ds.pk 03/09/19 Unknown Rx DOSEPAK (21 tabs)] Allergies Allergy/AdvReac Type Severity Reaction Status Date / Time amoxicillin [From Augmentin] Allergy Swelling Verified 03/08/19 06:34 apixaban [From Eliquis] Allergy Swelling Verified 03/08/19 06:34 clavulanic acid Allergy Swelling Verified 03/08/19 06:34 [From Augmentin] furosemide [From Lasix] Allergy Swelling Verified 03/08/19 12:39 levofloxacin Allergy Swelling Verified 03/08/19 12:39 lisinopril Allergy Swelling Verified 03/08/19 06:34 ED Review of Systems ROS: Stated complaint: ABD PAIN Other details as noted in HPI Constitutional: denies: chills, fever Eyes: denies: eye pain, eye discharge, vision change ENT: denies: ear pain, throat pain Respiratory: denies: cough, shortness of breath, wheezing Cardiovascular: denies: chest pain, palpitations Endocrine: no symptoms reported Gastrointestinal: as per HPI, abdominal pain. denies: nausea, vomiting, diarrhea Genitourinary: frequency (states urinary frequency last night). denies: urgency, dysuria Musculoskeletal: denies: back pain, joint swelling, arthralgia Skin: denies: rash, lesions Neurological: denies: headache, weakness, paresthesias Psychiatric: denies: anxiety, depression Hematological/Lymphatic: denies: easy bleeding, easy bruising ED Past Medical Hx - Past Medical History Hx Hypertension: Yes Hx Diabetes: Yes Hx Deep Vein Thrombosis: Yes Additional medical history: Afib - Surgical History Additional Surgical History: Pancreas surg, appendix surg - Social History Smoking Status: Never Smoker Substance Use Type: None - Medications Home Medications: Home Medications Medication Instructions Recorded Confirmed Last Taken Type Acetaminophen/Diphenhydramine 1 each PO PRN PRN 03/08/19 03/08/19 03/07/19 10:00 History [Tylenol Pm Ex-Strength Caplet] AtorvaSTATin [Lipitor] 40 mg PO QHS 03/08/19 03/08/19 Unknown History Carvedilol [Coreg] 12.5 mg PO BID 03/08/19 03/08/19 Unknown History Ibuprofen [Motrin 400 MG tab] 400 mg PO Q8H PRN 03/08/19 03/08/19 Unknown History Potassium Chloride [K-Dur] 10 meq PO QDAY 03/08/19 03/08/19 Unknown History Rivaroxaban [Xarelto] 20 mg PO QDAY 03/08/19 03/08/19 Unknown History amLODIPine [Norvasc] 10 mg PO DAILY 03/08/19 03/08/19 Unknown History traMADol [Ultram 50 MG tab] 50 mg PO PRN PRN 03/08/19 03/08/19 Unknown History Acetaminophen [Acetaminophen TAB] 650 mg PO Q4H PRN tablet 03/09/19 Unknown Rx Famotidine [Pepcid] 20 mg PO BID #20 tablet 03/09/19 Unknown Rx diphenhydrAMINE [Benadryl CAP] 25 mg PO Q6HR #10 capsule 03/09/19 Unknown Rx methylPREDNISolone [Medrol 4MG 4 mg PO QAM #1 tab.ds.pk 03/09/19 Unknown Rx DOSEPAK (21 tabs)] ED Physical Exam - General Limitations: No Limitations General appearance: alert, in no apparent distress - Head Head exam: Present: atraumatic, normocephalic - Eye Eye exam: Present: normal appearance. Absent: scleral icterus - ENT ENT exam: Present: mucous membranes moist - Neck Neck exam: Present: normal inspection - Respiratory Respiratory exam: Present: normal lung sounds bilaterally. Absent: respiratory distress - Cardiovascular Cardiovascular Exam: Present: regular rate, normal rhythm. Absent: systolic murmur, diastolic murmur, rubs, gallop - GI/Abdominal GI/Abdominal exam: Present: soft, normal bowel sounds, other (abdominal scars without hernia noted, well-healed). Absent: distended, tenderness, guarding, rebound, rigid - Rectal Rectal exam: Present: deferred - Extremities Exam Extremities exam: Present: normal inspection - Back Exam Back exam: Present: normal inspection - Neurological Exam Neurological exam: Present: alert, oriented X3, CN II-XII intact. Absent: motor sensory deficit - Psychiatric Psychiatric exam: Present: normal affect, normal mood - Skin Skin exam: Present: warm, dry, intact, normal color. Absent: rash ED Course Vital Signs 07/30/19 07/30/19 07/30/19 08:14 08:15 08:16 Temperature Pulse Rate 67 Respiratory 18 9 L Rate Blood Pressure [Left] O2 Sat by Pulse 98 99 100 Oximetry 07/30/19 07/30/19 07/30/19 08:17 08:30 08:46 Temperature 97.6 F Pulse Rate 70 67 72 Respiratory 18 13 12 Rate Blood Pressure 147/83 [Left] O2 Sat by Pulse 98 99 99 Oximetry 07/30/19 07/30/19 07/30/19 09:00 09:16 09:30 Temperature Pulse Rate 71 59 L 67 Respiratory 13 11 L 13 Rate Blood Pressure [Left] O2 Sat by Pulse 100 98 99 Oximetry 07/30/19 07/30/19 07/30/19 09:46 10:00 10:16 Temperature Pulse Rate 60 59 L 68 Respiratory 10 L 10 L 12 Rate Blood Pressure [Left] O2 Sat by Pulse 98 98 99 Oximetry 07/30/19 07/30/19 07/30/19 10:30 10:46 11:00 Temperature Pulse Rate 69 71 71 Respiratory 13 13 13 Rate Blood Pressure [Left] O2 Sat by Pulse 99 98 100 Oximetry 07/30/19 11:16 Temperature Pulse Rate 73 Respiratory 11 L Rate Blood Pressure [Left] O2 Sat by Pulse 98 Oximetry - Reevaluation(s) Reevaluation #1: No further c/o abdominal pain. Noted to have poorly controlled HTN. Patient admits he did not take his medicine this morning. He is directed to do so and to follow up closely with Dr. Liang. 07/30/19 12:06 ED Medical Decision Making - Lab Data Result diagrams: 07/30/19 09:21 07/30/19 09:21 Critical care attestation.: If time is entered above; I have spent that time in minutes in the direct care of this critically ill patient, excluding procedure time. ED Disposition Clinical Impression: Poorly-controlled hypertension Abdominal pain Qualifiers: Abdominal location: left upper quadrant Qualified Code(s): R10.12 - Left upper quadrant pain Disposition: DC-01 TO HOME OR SELFCARE Is pt being admited?: No Does the pt Need Aspirin: No Condition: Stable Instructions: Acute Abdominal Pain (ED), Hypertension (ED) Additional Instructions: Return any acute change or recurrent symptoms. Check your blood pressure frequently. Take your blood pressure medicine when you return home. Follow up closely with Dr. Liang. Referrals: PRIMARY CAREMD [Primary Care Provider] - 3-5 Days LINDA LIANG MD [Staff Physician] - 3-5 Days Time of Disposition: 12:09
[2019-07-30 09:40] LABS: Basophils % (Auto) 0.4 % (0.0-1.8); Eosinophils # (Auto) 0.3 K/mm3 (0.0-0.4); Eosinophils % (Auto) 3.8 % (0.0-4.3); Hematocrit 37.5 % (35.5-45.6); Hemoglobin 12.1 gm/dl (11.8-15.2); Lymphocytes # (Auto) 1.4 K/mm3 (1.2-5.4); Lymphocytes % (Auto) 19.3 % (13.4-35.0); Mean Corpuscular HGB Conc 32 % (32-34); Mean Corpuscular Volume 82 fl (84-94); Monocytes # (Auto) 0.8 K/mm3 (0.0-0.8); Monocytes % (Auto) 11.7 % (0.0-7.3); Platelet Count 242 K/mm3 (140-440); Red Blood Count 4.56 M/mm3 (3.65-5.03); Red Cell Distribution Width 19.7 % (13.2-15.2)
[2019-07-30 10:37] LABS: Bilirubin,Urine NEG (Negative); Blood,Urine SM (Negative); Color,Urine Yellow (Yellow); Mucus,Urine FEW /HPF; Urobilinogen,Urine < 2.0 mg/dL (<2.0)
[2019-07-30 10:47] LABS: Alanine Aminotransferase 27 units/L (7-56); Albumin 4.1 g/dL (3.9-5); BUN/Creatinine Ratio 19; Blood Urea Nitrogen 15 mg/dL (9-20); Hemolysis Index 2
[2019-07-30 10:48] LABS: Bilirubin,Direct < 0.2 mg/dL (0-0.2)
[2019-07-30 14:30] VITALS: BP 157/64
== END 2019-07-30 13:00 | disposition home or self-care (01) ==
LOC: ED 08:07
DX: R10.12 Left upper quadrant pain (principal); I10 Essential (primary) hypertension; E11.9 Type 2 diabetes mellitus without complications; I48.91 Unspecified atrial fibrillation; Z86.718 Personal history of other venous thrombosis and embolism; Z79.899 Other long term (current) drug therapy; Z88.1 Allergy status to other antibiotic agents; Z88.8 Allergy status to other drugs, medicaments and biological substances
CPT/HCPCS: 36415; 80048; 80076; 81001; 83690; 85025

== ENCOUNTER 2019-08-01 09:54 | Outpatient (CLI) | payer MEDICARE ==
[2019-08-01] MEDS ORDERED: XYLOCAINE TOPICAL 4% TP ONE (10:30)
[2019-08-01] MEDS ORDERED: SILVER NITRATE TP ONE (10:30)
== END 2019-08-01 09:55 | disposition home or self-care (01) ==
LOC: WOUND 09:54
PROVIDERS: ATTEND Surgery
DX: T87.89 Other complications of amputation stump (principal); E11.621 Type 2 diabetes mellitus with foot ulcer; L97.422 Non-pressure chronic ulcer of left heel and midfoot with fat layer exposed; L84 Corns and callosities; I10 Essential (primary) hypertension; Y83.5 Amputation of limb(s) as the cause of abnormal reaction of the patient, or of later complication, without mention of misadventure at the time of the procedure

== ENCOUNTER 2019-08-08 09:34 | Outpatient (CLI) | payer MEDICARE ==
[2019-08-08] MEDS ORDERED: LIDOCAINE (4%) 40 MG/ML TOPICAL SOLN 50 ML BOTTLE TP ONE (11:00)
== END 2019-08-08 09:35 | disposition home or self-care (01) ==
LOC: WOUND 09:34
PROVIDERS: ATTEND Surgery
DX: T87.89 Other complications of amputation stump (principal); E11.621 Type 2 diabetes mellitus with foot ulcer; L97.422 Non-pressure chronic ulcer of left heel and midfoot with fat layer exposed; L84 Corns and callosities; I10 Essential (primary) hypertension; Y83.5 Amputation of limb(s) as the cause of abnormal reaction of the patient, or of later complication, without mention of misadventure at the time of the procedure

== ENCOUNTER 2019-08-15 09:26 | Outpatient (CLI) | payer MEDICARE ==
[2019-08-15] MEDS ORDERED: SILVER NITRATE APPLICATOR 1 EA TP ONE (11:00)
[2019-08-15] MEDS ORDERED: LIDOCAINE (4%) 40 MG/ML TOPICAL SOLN 50 ML BOTTLE TP ONE (11:00)
== END 2019-08-15 09:27 | disposition home or self-care (01) ==
LOC: WOUND 09:26
PROVIDERS: ATTEND Surgery
DX: T87.89 Other complications of amputation stump (principal); E11.621 Type 2 diabetes mellitus with foot ulcer; L97.422 Non-pressure chronic ulcer of left heel and midfoot with fat layer exposed; L84 Corns and callosities; I10 Essential (primary) hypertension; Y83.5 Amputation of limb(s) as the cause of abnormal reaction of the patient, or of later complication, without mention of misadventure at the time of the procedure

== ENCOUNTER 2019-08-22 08:47 | Outpatient (CLI) | payer MEDICARE ==
[2019-08-22] MEDS ORDERED: LIDOCAINE (4%) 40 MG/ML TOPICAL SOLN 50 ML BOTTLE TP ONE (10:00)
== END 2019-08-22 08:48 | disposition home or self-care (01) ==
LOC: WOUND 08:47
PROVIDERS: ATTEND Surgery
DX: T87.89 Other complications of amputation stump (principal); E11.621 Type 2 diabetes mellitus with foot ulcer; L97.422 Non-pressure chronic ulcer of left heel and midfoot with fat layer exposed; L84 Corns and callosities; I10 Essential (primary) hypertension; Y83.5 Amputation of limb(s) as the cause of abnormal reaction of the patient, or of later complication, without mention of misadventure at the time of the procedure

== ENCOUNTER 2019-08-29 09:33 | Outpatient (CLI) | payer MEDICARE ==
[2019-08-29] MEDS ORDERED: LIDOCAINE (4%) 40 MG/ML TOPICAL SOLN 50 ML BOTTLE TP ONE (10:23)
== END 2019-08-29 09:34 | disposition home or self-care (01) ==
LOC: WOUND 09:33
PROVIDERS: ATTEND Surgery
DX: T87.89 Other complications of amputation stump (principal); E11.621 Type 2 diabetes mellitus with foot ulcer; L97.422 Non-pressure chronic ulcer of left heel and midfoot with fat layer exposed; L84 Corns and callosities; I10 Essential (primary) hypertension; Y83.5 Amputation of limb(s) as the cause of abnormal reaction of the patient, or of later complication, without mention of misadventure at the time of the procedure

== ENCOUNTER 2019-09-18 09:29 | Outpatient (CLI) | payer MEDICARE ==
[2019-09-18] MEDS ORDERED: SILVER NITRATE APPLICATOR 1 EA TP ONE (09:52)
[2019-09-18] MEDS ORDERED: LIDOCAINE (4%) 40 MG/ML TOPICAL SOLN 50 ML BOTTLE TP ONE (10:00)
== END 2019-09-18 09:30 | disposition home or self-care (01) ==
LOC: WOUND 09:29
PROVIDERS: ATTEND Surgery
DX: T87.89 Other complications of amputation stump (principal); E11.621 Type 2 diabetes mellitus with foot ulcer; L97.422 Non-pressure chronic ulcer of left heel and midfoot with fat layer exposed; L84 Corns and callosities; I10 Essential (primary) hypertension; Y83.5 Amputation of limb(s) as the cause of abnormal reaction of the patient, or of later complication, without mention of misadventure at the time of the procedure
CPT/HCPCS: 17250

== ENCOUNTER 2019-09-25 09:26 | Outpatient (CLI) | payer MEDICARE ==
[2019-09-25] MEDS ORDERED: LIDOCAINE (4%) 40 MG/ML TOPICAL SOLN 50 ML BOTTLE TP ONE (10:00)
[2019-09-25] MEDS ORDERED: SILVER NITRATE APPLICATOR 1 EA TP ONE (10:00)
== END 2019-09-25 09:27 | disposition home or self-care (01) ==
LOC: WOUND 09:26
PROVIDERS: ATTEND Surgery
DX: T87.89 Other complications of amputation stump (principal); E11.621 Type 2 diabetes mellitus with foot ulcer; L97.422 Non-pressure chronic ulcer of left heel and midfoot with fat layer exposed; L84 Corns and callosities; I10 Essential (primary) hypertension; Y83.5 Amputation of limb(s) as the cause of abnormal reaction of the patient, or of later complication, without mention of misadventure at the time of the procedure

== ENCOUNTER 2019-10-17 09:32 | Outpatient (CLI) | payer MEDICARE ==
[2019-10-17] MEDS ORDERED: LIDOCAINE (4%) 40 MG/ML TOPICAL SOLN 50 ML BOTTLE TP ONE (09:56)
== END 2019-10-17 09:33 | disposition home or self-care (01) ==
LOC: WOUND 09:32
PROVIDERS: ATTEND Surgery
DX: T87.89 Other complications of amputation stump (principal); E11.621 Type 2 diabetes mellitus with foot ulcer; L97.422 Non-pressure chronic ulcer of left heel and midfoot with fat layer exposed; L84 Corns and callosities; I10 Essential (primary) hypertension; Y83.5 Amputation of limb(s) as the cause of abnormal reaction of the patient, or of later complication, without mention of misadventure at the time of the procedure

== ENCOUNTER 2019-10-24 09:27 | Outpatient (CLI) | payer MEDICARE ==
[2019-10-24] MEDS ORDERED: LIDOCAINE (4%) 40 MG/ML TOPICAL SOLN 50 ML BOTTLE TP ONE (10:00)
[2019-10-24] MEDS ORDERED: SILVER NITRATE APPLICATOR 1 EA TP ONE (10:00)
== END 2019-10-24 09:28 | disposition home or self-care (01) ==
LOC: WOUND 09:27
PROVIDERS: ATTEND Surgery
DX: T87.89 Other complications of amputation stump (principal); E11.621 Type 2 diabetes mellitus with foot ulcer; L97.422 Non-pressure chronic ulcer of left heel and midfoot with fat layer exposed; L84 Corns and callosities; I10 Essential (primary) hypertension; Y83.5 Amputation of limb(s) as the cause of abnormal reaction of the patient, or of later complication, without mention of misadventure at the time of the procedure

== ENCOUNTER 2019-11-01 09:04 | Outpatient (CLI) | payer MEDICARE ==
[2019-11-01] MEDS ORDERED: LIDOCAINE (4%) 40 MG/ML TOPICAL SOLN 50 ML BOTTLE TP ONE (10:00)
== END 2019-11-01 09:05 | disposition home or self-care (01) ==
LOC: WOUND 09:04
PROVIDERS: ATTEND Surgery
DX: T87.89 Other complications of amputation stump (principal); E11.621 Type 2 diabetes mellitus with foot ulcer; L97.422 Non-pressure chronic ulcer of left heel and midfoot with fat layer exposed; L84 Corns and callosities; I10 Essential (primary) hypertension; Y83.5 Amputation of limb(s) as the cause of abnormal reaction of the patient, or of later complication, without mention of misadventure at the time of the procedure

== ENCOUNTER 2019-11-08 09:29 | Outpatient (CLI) | payer MEDICARE ==
[2019-11-08] MEDS ORDERED: LIDOCAINE (4%) 40 MG/ML TOPICAL SOLN 50 ML BOTTLE TP ONE (09:57)
[2019-11-08] MEDS ORDERED: SILVER NITRATE APPLICATOR 1 EA TP ONE (09:57)
== END 2019-11-08 09:30 | disposition home or self-care (01) ==
LOC: WOUND 09:29
PROVIDERS: ATTEND Surgery
DX: T87.89 Other complications of amputation stump (principal); E11.621 Type 2 diabetes mellitus with foot ulcer; L97.422 Non-pressure chronic ulcer of left heel and midfoot with fat layer exposed; L84 Corns and callosities; I10 Essential (primary) hypertension; Y83.5 Amputation of limb(s) as the cause of abnormal reaction of the patient, or of later complication, without mention of misadventure at the time of the procedure

== ENCOUNTER 2019-11-15 09:17 | Outpatient (CLI) | payer MEDICARE ==
[2019-11-15] MEDS ORDERED: LIDOCAINE (4%) 40 MG/ML TOPICAL SOLN 50 ML BOTTLE TP ONE (10:00)
[2019-11-15] MEDS ORDERED: SILVER NITRATE APPLICATOR 1 EA TP ONE (10:00)
== END 2019-11-15 09:18 | disposition home or self-care (01) ==
LOC: WOUND 09:17
PROVIDERS: ATTEND Surgery
DX: T87.89 Other complications of amputation stump (principal); E11.621 Type 2 diabetes mellitus with foot ulcer; L97.422 Non-pressure chronic ulcer of left heel and midfoot with fat layer exposed; L84 Corns and callosities; I10 Essential (primary) hypertension; Y83.5 Amputation of limb(s) as the cause of abnormal reaction of the patient, or of later complication, without mention of misadventure at the time of the procedure

== ENCOUNTER 2019-11-22 09:22 | Outpatient (CLI) | payer MEDICARE ==
[2019-11-22] MEDS ORDERED: LIDOCAINE (4%) 40 MG/ML TOPICAL SOLN 50 ML BOTTLE TP ONE (10:20)
== END 2019-11-22 09:23 | disposition home or self-care (01) ==
LOC: WOUND 09:22
PROVIDERS: ATTEND Surgery
DX: T87.89 Other complications of amputation stump (principal); E11.621 Type 2 diabetes mellitus with foot ulcer; L97.422 Non-pressure chronic ulcer of left heel and midfoot with fat layer exposed; L84 Corns and callosities; I10 Essential (primary) hypertension; Y83.5 Amputation of limb(s) as the cause of abnormal reaction of the patient, or of later complication, without mention of misadventure at the time of the procedure

== ENCOUNTER 2019-11-29 09:09 | Outpatient (CLI) | payer MEDICARE ==
[2019-11-29] MEDS ORDERED: LIDOCAINE (4%) 40 MG/ML TOPICAL SOLN 50 ML BOTTLE TP ONE (09:30)
[2019-11-29] MEDS ORDERED: VITAMIN A & D OINT 56.7 GM TP SCH (10:00)
== END 2019-11-29 09:10 | disposition home or self-care (01) ==
LOC: WOUND 09:09
PROVIDERS: ATTEND Surgery
DX: T87.89 Other complications of amputation stump (principal); E11.621 Type 2 diabetes mellitus with foot ulcer; L97.522 Non-pressure chronic ulcer of other part of left foot with fat layer exposed; L97.422 Non-pressure chronic ulcer of left heel and midfoot with fat layer exposed; I10 Essential (primary) hypertension; Y83.5 Amputation of limb(s) as the cause of abnormal reaction of the patient, or of later complication, without mention of misadventure at the time of the procedure
CPT/HCPCS: A6250

== ENCOUNTER 2019-12-06 09:10 | Outpatient (CLI) | payer MEDICARE ==
[2019-12-06] MEDS ORDERED: LIDOCAINE (4%) 40 MG/ML TOPICAL SOLN 50 ML BOTTLE TP ONE (10:00)
[2019-12-06] MEDS ORDERED: SILVER NITRATE APPLICATOR 1 EA TP ONE (10:00)
== END 2019-12-06 09:11 | disposition home or self-care (01) ==
LOC: WOUND 09:10
PROVIDERS: ATTEND Surgery
DX: T87.89 Other complications of amputation stump (principal); E11.621 Type 2 diabetes mellitus with foot ulcer; L97.522 Non-pressure chronic ulcer of other part of left foot with fat layer exposed; L97.422 Non-pressure chronic ulcer of left heel and midfoot with fat layer exposed; I10 Essential (primary) hypertension; Y83.5 Amputation of limb(s) as the cause of abnormal reaction of the patient, or of later complication, without mention of misadventure at the time of the procedure
CPT/HCPCS: 29581

== ENCOUNTER 2019-12-10 14:35 | Outpatient (CLI) | payer MEDICARE | END 2019-12-10 14:36 | disposition home or self-care (01) | LOC: WOUND 14:35 | PROVIDERS: ATTEND Surgery | DX: T87.89 Other complications of amputation stump (principal); E11.621 Type 2 diabetes mellitus with foot ulcer; L97.522 Non-pressure chronic ulcer of other part of left foot with fat layer exposed; L97.422 Non-pressure chronic ulcer of left heel and midfoot with fat layer exposed; I10 Essential (primary) hypertension; Y83.5 Amputation of limb(s) as the cause of abnormal reaction of the patient, or of later complication, without mention of misadventure at the time of the procedure | CPT/HCPCS: 29581 ==

== ENCOUNTER 2019-12-13 09:18 | Outpatient (CLI) | payer MEDICARE ==
[2019-12-13] MEDS ORDERED: LIDOCAINE (4%) 40 MG/ML TOPICAL SOLN 50 ML BOTTLE TP ONE (10:00)
== END 2019-12-13 09:19 | disposition home or self-care (01) ==
LOC: WOUND 09:18
PROVIDERS: ATTEND Surgery
DX: T87.89 Other complications of amputation stump (principal); E11.621 Type 2 diabetes mellitus with foot ulcer; L97.522 Non-pressure chronic ulcer of other part of left foot with fat layer exposed; L97.422 Non-pressure chronic ulcer of left heel and midfoot with fat layer exposed; I10 Essential (primary) hypertension; Y83.5 Amputation of limb(s) as the cause of abnormal reaction of the patient, or of later complication, without mention of misadventure at the time of the procedure
CPT/HCPCS: 29581

== ENCOUNTER 2019-12-17 13:30 | Outpatient (CLI) | payer MEDICARE | END 2019-12-17 13:31 | disposition home or self-care (01) | LOC: WOUND 13:30 | PROVIDERS: ATTEND Surgery | DX: T87.89 Other complications of amputation stump (principal); E11.621 Type 2 diabetes mellitus with foot ulcer; L97.522 Non-pressure chronic ulcer of other part of left foot with fat layer exposed; L97.422 Non-pressure chronic ulcer of left heel and midfoot with fat layer exposed; I10 Essential (primary) hypertension; Y83.5 Amputation of limb(s) as the cause of abnormal reaction of the patient, or of later complication, without mention of misadventure at the time of the procedure | CPT/HCPCS: 99212; G0463 ==

== ENCOUNTER 2019-12-20 09:19 | Outpatient (CLI) | payer MEDICARE ==
[2019-12-20] MEDS ORDERED: VITAMIN A & D OINT 56.7 GM TP SCH (10:00)
[2019-12-20] MEDS ORDERED: LIDOCAINE (4%) 40 MG/ML TOPICAL SOLN 50 ML BOTTLE TP ONE (10:00)
== END 2019-12-20 09:20 | disposition home or self-care (01) ==
LOC: WOUND 09:19
PROVIDERS: ATTEND Surgery
DX: T87.89 Other complications of amputation stump (principal); E11.621 Type 2 diabetes mellitus with foot ulcer; L97.522 Non-pressure chronic ulcer of other part of left foot with fat layer exposed; L97.422 Non-pressure chronic ulcer of left heel and midfoot with fat layer exposed; Y83.5 Amputation of limb(s) as the cause of abnormal reaction of the patient, or of later complication, without mention of misadventure at the time of the procedure
CPT/HCPCS: C5275; Q4117; A6250

== ENCOUNTER 2020-01-01 14:28 | Outpatient (CLI) | payer MEDICARE | END 2020-01-01 14:29 | disposition home or self-care (01) | LOC: WOUND 14:28 | PROVIDERS: ATTEND Surgery | DX: T87.89 Other complications of amputation stump (principal); E11.621 Type 2 diabetes mellitus with foot ulcer; L97.522 Non-pressure chronic ulcer of other part of left foot with fat layer exposed; L97.422 Non-pressure chronic ulcer of left heel and midfoot with fat layer exposed; Y83.5 Amputation of limb(s) as the cause of abnormal reaction of the patient, or of later complication, without mention of misadventure at the time of the procedure | CPT/HCPCS: 99212; G0463 ==

== ENCOUNTER 2020-01-03 09:28 | Outpatient (CLI) | payer MEDICARE ==
[2020-01-03] MEDS ORDERED: LIDOCAINE (4%) 40 MG/ML TOPICAL SOLN 50 ML BOTTLE TP NR (09:51)
== END 2020-01-03 09:29 | disposition home or self-care (01) ==
LOC: WOUND 09:28
PROVIDERS: ATTEND Surgery
DX: T87.89 Other complications of amputation stump (principal); E11.621 Type 2 diabetes mellitus with foot ulcer; L97.522 Non-pressure chronic ulcer of other part of left foot with fat layer exposed; L97.422 Non-pressure chronic ulcer of left heel and midfoot with fat layer exposed; Y83.5 Amputation of limb(s) as the cause of abnormal reaction of the patient, or of later complication, without mention of misadventure at the time of the procedure

== ENCOUNTER 2020-01-10 09:11 | Outpatient (CLI) | payer MEDICARE ==
[2020-01-10] MEDS ORDERED: LIDOCAINE (4%) 40 MG/ML TOPICAL SOLN 50 ML BOTTLE TP ONE (10:00)
== END 2020-01-10 09:12 | disposition home or self-care (01) ==
LOC: WOUND 09:11
PROVIDERS: ATTEND Surgery
DX: T87.89 Other complications of amputation stump (principal); E11.621 Type 2 diabetes mellitus with foot ulcer; L97.522 Non-pressure chronic ulcer of other part of left foot with fat layer exposed; L97.422 Non-pressure chronic ulcer of left heel and midfoot with fat layer exposed; Y83.5 Amputation of limb(s) as the cause of abnormal reaction of the patient, or of later complication, without mention of misadventure at the time of the procedure

== ENCOUNTER 2020-01-17 08:50 | Outpatient (CLI) | payer MEDICARE ==
[2020-01-17] MEDS ORDERED: LIDOCAINE (4%) 40 MG/ML TOPICAL SOLN 50 ML BOTTLE TP ONE (10:10)
== END 2020-01-17 08:51 | disposition home or self-care (01) ==
LOC: WOUND 08:50
PROVIDERS: ATTEND Surgery
DX: T87.89 Other complications of amputation stump (principal); E11.621 Type 2 diabetes mellitus with foot ulcer; L97.522 Non-pressure chronic ulcer of other part of left foot with fat layer exposed; L97.422 Non-pressure chronic ulcer of left heel and midfoot with fat layer exposed; L84 Corns and callosities; I10 Essential (primary) hypertension; Y83.5 Amputation of limb(s) as the cause of abnormal reaction of the patient, or of later complication, without mention of misadventure at the time of the procedure

== ENCOUNTER 2020-01-23 10:57 | Outpatient (CLI) | payer MEDICARE ==
[2020-01-23] MEDS ORDERED: LIDOCAINE (4%) 40 MG/ML TOPICAL SOLN 50 ML BOTTLE TP ONE (11:28)
== END 2020-01-23 10:58 | disposition home or self-care (01) ==
LOC: WOUND 10:57
PROVIDERS: ATTEND Surgery
DX: T87.89 Other complications of amputation stump (principal); E11.621 Type 2 diabetes mellitus with foot ulcer; L97.422 Non-pressure chronic ulcer of left heel and midfoot with fat layer exposed; L97.522 Non-pressure chronic ulcer of other part of left foot with fat layer exposed; I10 Essential (primary) hypertension; Y83.5 Amputation of limb(s) as the cause of abnormal reaction of the patient, or of later complication, without mention of misadventure at the time of the procedure

== ENCOUNTER 2020-01-30 11:10 | Outpatient (CLI) | payer MEDICARE | END 2020-01-30 11:11 | disposition home or self-care (01) | LOC: WOUND 11:10 | PROVIDERS: ATTEND Surgery | DX: T87.89 Other complications of amputation stump (principal); E11.621 Type 2 diabetes mellitus with foot ulcer; L97.422 Non-pressure chronic ulcer of left heel and midfoot with fat layer exposed; I10 Essential (primary) hypertension; Y83.5 Amputation of limb(s) as the cause of abnormal reaction of the patient, or of later complication, without mention of misadventure at the time of the procedure ==

== ENCOUNTER 2020-02-06 10:50 | Outpatient (CLI) | payer MEDICARE ==
[2020-02-06] MEDS ORDERED: LIDOCAINE (4%) 40 MG/ML TOPICAL SOLN 50 ML BOTTLE TP ONE (11:30)
== END 2020-02-06 10:51 | disposition home or self-care (01) ==
LOC: WOUND 10:50
PROVIDERS: ATTEND Surgery
DX: T87.89 Other complications of amputation stump (principal); E11.621 Type 2 diabetes mellitus with foot ulcer; L97.422 Non-pressure chronic ulcer of left heel and midfoot with fat layer exposed; I10 Essential (primary) hypertension; Y83.5 Amputation of limb(s) as the cause of abnormal reaction of the patient, or of later complication, without mention of misadventure at the time of the procedure

== ENCOUNTER 2020-02-27 10:26 | Outpatient (CLI) | payer MEDICARE ==
[2020-02-27] MEDS ORDERED: LIDOCAINE (4%) 40 MG/ML TOPICAL SOLN 50 ML BOTTLE TP ONE (11:00)
== END 2020-02-27 10:27 | disposition home or self-care (01) ==
LOC: WOUND 10:26
PROVIDERS: ATTEND Surgery
DX: T87.89 Other complications of amputation stump (principal); E11.621 Type 2 diabetes mellitus with foot ulcer; L97.422 Non-pressure chronic ulcer of left heel and midfoot with fat layer exposed; I10 Essential (primary) hypertension; Y83.5 Amputation of limb(s) as the cause of abnormal reaction of the patient, or of later complication, without mention of misadventure at the time of the procedure
CPT/HCPCS: 15275; Q4158

== ENCOUNTER 2020-03-12 10:27 | Outpatient (CLI) | payer MEDICARE ==
[2020-03-12] MEDS ORDERED: LIDOCAINE (4%) 40 MG/ML TOPICAL SOLN 50 ML BOTTLE TP ONE (11:00)
== END 2020-03-12 10:28 | disposition home or self-care (01) ==
LOC: WOUND 10:27
PROVIDERS: ATTEND Surgery
DX: T87.89 Other complications of amputation stump (principal); E11.621 Type 2 diabetes mellitus with foot ulcer; L97.422 Non-pressure chronic ulcer of left heel and midfoot with fat layer exposed; I10 Essential (primary) hypertension; Y83.2 Surgical operation with anastomosis, bypass or graft as the cause of abnormal reaction of the patient, or of later complication, without mention of misadventure at the time of the procedure
CPT/HCPCS: 15275; Q4158

== ENCOUNTER 2020-03-19 10:15 | Outpatient (CLI) | payer MEDICARE ==
[2020-03-19] MEDS ORDERED: LIDOCAINE (4%) 40 MG/ML TOPICAL SOLN 50 ML BOTTLE TP ONE (10:20)
== END 2020-03-19 10:16 | disposition home or self-care (01) ==
LOC: WOUND 10:15
PROVIDERS: ATTEND Surgery
DX: T87.89 Other complications of amputation stump (principal); E11.621 Type 2 diabetes mellitus with foot ulcer; L97.422 Non-pressure chronic ulcer of left heel and midfoot with fat layer exposed; I10 Essential (primary) hypertension; Y83.2 Surgical operation with anastomosis, bypass or graft as the cause of abnormal reaction of the patient, or of later complication, without mention of misadventure at the time of the procedure

== ENCOUNTER 2020-03-26 10:22 | Outpatient (CLI) | payer MEDICARE ==
[2020-03-26] MEDS ORDERED: LIDOCAINE (4%) 40 MG/ML TOPICAL SOLN 50 ML BOTTLE TP ONE (11:00)
== END 2020-03-26 10:23 | disposition home or self-care (01) ==
LOC: WOUND 10:22
PROVIDERS: ATTEND Surgery
DX: T87.89 Other complications of amputation stump (principal); E11.621 Type 2 diabetes mellitus with foot ulcer; L97.422 Non-pressure chronic ulcer of left heel and midfoot with fat layer exposed; L97.522 Non-pressure chronic ulcer of other part of left foot with fat layer exposed; I10 Essential (primary) hypertension; Y83.2 Surgical operation with anastomosis, bypass or graft as the cause of abnormal reaction of the patient, or of later complication, without mention of misadventure at the time of the procedure

== ENCOUNTER 2020-04-22 14:53 | Outpatient (CLI) | payer MEDICARE | END 2020-04-22 14:54 | disposition home or self-care (01) | LOC: WOUND 14:53 | PROVIDERS: ATTEND Surgery | DX: E11.621 Type 2 diabetes mellitus with foot ulcer (principal); L97.422 Non-pressure chronic ulcer of left heel and midfoot with fat layer exposed; E11.69 Type 2 diabetes mellitus with other specified complication; M86.372 Chronic multifocal osteomyelitis, left ankle and foot; I10 Essential (primary) hypertension; Z89.9 Acquired absence of limb, unspecified | CPT/HCPCS: 11042; 82962; G0277; 99183 ==

== ENCOUNTER 2020-04-23 08:58 | Outpatient (CLI) | payer MEDICARE | END 2020-04-23 08:59 | disposition home or self-care (01) | LOC: WOUND 08:58 | PROVIDERS: ATTEND Surgery | DX: E11.621 Type 2 diabetes mellitus with foot ulcer (principal); L97.422 Non-pressure chronic ulcer of left heel and midfoot with fat layer exposed; E11.69 Type 2 diabetes mellitus with other specified complication; M86.372 Chronic multifocal osteomyelitis, left ankle and foot; I10 Essential (primary) hypertension; Z89.9 Acquired absence of limb, unspecified | CPT/HCPCS: 82962; G0277; 99183 ==

== ENCOUNTER 2020-04-24 09:50 | Outpatient (CLI) | payer MEDICARE | END 2020-04-24 09:51 | disposition home or self-care (01) | LOC: WOUND 09:50 | PROVIDERS: ATTEND Internal Medicine | DX: E11.621 Type 2 diabetes mellitus with foot ulcer (principal); L97.422 Non-pressure chronic ulcer of left heel and midfoot with fat layer exposed; E11.69 Type 2 diabetes mellitus with other specified complication; M86.372 Chronic multifocal osteomyelitis, left ankle and foot; I10 Essential (primary) hypertension; Z89.9 Acquired absence of limb, unspecified | CPT/HCPCS: 82962; G0277; 99183 ==

== ENCOUNTER 2020-04-27 09:40 | Outpatient (CLI) | payer MEDICARE | END 2020-04-27 09:41 | disposition home or self-care (01) | LOC: WOUND 09:40 | PROVIDERS: ATTEND Surgery | DX: E11.621 Type 2 diabetes mellitus with foot ulcer (principal); L97.422 Non-pressure chronic ulcer of left heel and midfoot with fat layer exposed; E11.69 Type 2 diabetes mellitus with other specified complication; M86.372 Chronic multifocal osteomyelitis, left ankle and foot; I10 Essential (primary) hypertension; Z89.9 Acquired absence of limb, unspecified | CPT/HCPCS: 82962; G0277; 99183 ==

== ENCOUNTER 2020-04-28 10:53 | Outpatient (CLI) | payer MEDICARE | END 2020-04-28 10:54 | disposition home or self-care (01) | LOC: WOUND 10:53 | PROVIDERS: ATTEND Internal Medicine | DX: E11.621 Type 2 diabetes mellitus with foot ulcer (principal); L97.422 Non-pressure chronic ulcer of left heel and midfoot with fat layer exposed; E11.69 Type 2 diabetes mellitus with other specified complication; M86.372 Chronic multifocal osteomyelitis, left ankle and foot; I10 Essential (primary) hypertension; Z89.9 Acquired absence of limb, unspecified | CPT/HCPCS: 82962; G0277; 99183 ==

== ENCOUNTER 2020-04-29 08:50 | Outpatient (CLI) | payer MEDICARE | END 2020-04-29 08:51 | disposition home or self-care (01) | LOC: WOUND 08:50 | PROVIDERS: ATTEND Surgery | DX: T87.89 Other complications of amputation stump (principal); E11.621 Type 2 diabetes mellitus with foot ulcer; L97.422 Non-pressure chronic ulcer of left heel and midfoot with fat layer exposed; E11.69 Type 2 diabetes mellitus with other specified complication; M86.372 Chronic multifocal osteomyelitis, left ankle and foot; I10 Essential (primary) hypertension; Z89.9 Acquired absence of limb, unspecified; Y83.5 Amputation of limb(s) as the cause of abnormal reaction of the patient, or of later complication, without mention of misadventure at the time of the procedure | CPT/HCPCS: 11042; 82962; G0277; 99183 ==

== ENCOUNTER 2020-05-05 11:08 | Outpatient (CLI) | payer MEDICARE | END 2020-05-05 11:09 | disposition home or self-care (01) | LOC: WOUND 11:08 | PROVIDERS: ATTEND Surgery | DX: T87.89 Other complications of amputation stump (principal); E11.621 Type 2 diabetes mellitus with foot ulcer; L97.422 Non-pressure chronic ulcer of left heel and midfoot with fat layer exposed; E11.69 Type 2 diabetes mellitus with other specified complication; M86.372 Chronic multifocal osteomyelitis, left ankle and foot; I10 Essential (primary) hypertension; Z89.9 Acquired absence of limb, unspecified; Y83.5 Amputation of limb(s) as the cause of abnormal reaction of the patient, or of later complication, without mention of misadventure at the time of the procedure | CPT/HCPCS: 11042; G0277; 99183 ==

== ENCOUNTER 2020-05-07 07:59 | Outpatient (CLI) | payer MEDICARE | END 2020-05-07 08:00 | disposition home or self-care (01) | LOC: WOUND 07:59 | PROVIDERS: ATTEND Internal Medicine | DX: E11.621 Type 2 diabetes mellitus with foot ulcer (principal); L97.422 Non-pressure chronic ulcer of left heel and midfoot with fat layer exposed; E11.69 Type 2 diabetes mellitus with other specified complication; M86.372 Chronic multifocal osteomyelitis, left ankle and foot; I10 Essential (primary) hypertension; Z89.9 Acquired absence of limb, unspecified; Y83.5 Amputation of limb(s) as the cause of abnormal reaction of the patient, or of later complication, without mention of misadventure at the time of the procedure | CPT/HCPCS: 82962; G0277; 99183 ==

== ENCOUNTER 2020-05-19 08:00 | Outpatient (CLI) | payer MEDICARE | END 2020-05-19 08:01 | disposition home or self-care (01) | LOC: WOUND 08:00 | PROVIDERS: ATTEND Internal Medicine | DX: T87.89 Other complications of amputation stump (principal); E11.621 Type 2 diabetes mellitus with foot ulcer; L97.422 Non-pressure chronic ulcer of left heel and midfoot with fat layer exposed; L97.522 Non-pressure chronic ulcer of other part of left foot with fat layer exposed; E11.69 Type 2 diabetes mellitus with other specified complication; M86.372 Chronic multifocal osteomyelitis, left ankle and foot; I10 Essential (primary) hypertension; Z89.9 Acquired absence of limb, unspecified; Y83.5 Amputation of limb(s) as the cause of abnormal reaction of the patient, or of later complication, without mention of misadventure at the time of the procedure | CPT/HCPCS: 82962; G0277; 99183 ==

== ENCOUNTER 2020-05-20 07:58 | Outpatient (CLI) | payer MEDICARE | END 2020-05-20 07:59 | disposition home or self-care (01) | LOC: WOUND 07:58 | PROVIDERS: ATTEND Surgery | DX: T87.89 Other complications of amputation stump (principal); E11.621 Type 2 diabetes mellitus with foot ulcer; L97.422 Non-pressure chronic ulcer of left heel and midfoot with fat layer exposed; E11.69 Type 2 diabetes mellitus with other specified complication; M86.372 Chronic multifocal osteomyelitis, left ankle and foot; I10 Essential (primary) hypertension; Y83.5 Amputation of limb(s) as the cause of abnormal reaction of the patient, or of later complication, without mention of misadventure at the time of the procedure | CPT/HCPCS: 11042; 82962; G0277; 99183 ==

== ENCOUNTER 2020-05-25 08:12 | Outpatient (CLI) | payer MEDICARE | END 2020-05-25 08:13 | disposition home or self-care (01) | LOC: WOUND 08:12 | PROVIDERS: ATTEND Surgery | DX: E11.621 Type 2 diabetes mellitus with foot ulcer (principal); L97.422 Non-pressure chronic ulcer of left heel and midfoot with fat layer exposed; E11.69 Type 2 diabetes mellitus with other specified complication; M86.372 Chronic multifocal osteomyelitis, left ankle and foot; I10 Essential (primary) hypertension | CPT/HCPCS: 82962; G0277; 99183 ==

== ENCOUNTER 2020-05-26 08:37 | Outpatient (CLI) | payer MEDICARE | END 2020-05-26 08:38 | disposition home or self-care (01) | LOC: WOUND 08:37 | PROVIDERS: ATTEND Internal Medicine | DX: E11.621 Type 2 diabetes mellitus with foot ulcer (principal); L97.422 Non-pressure chronic ulcer of left heel and midfoot with fat layer exposed; E11.69 Type 2 diabetes mellitus with other specified complication; M86.372 Chronic multifocal osteomyelitis, left ankle and foot; I10 Essential (primary) hypertension | CPT/HCPCS: 82962; G0277; 99183 ==

== ENCOUNTER 2020-05-27 08:05 | Outpatient (CLI) | payer MEDICARE | END 2020-05-27 08:06 | disposition home or self-care (01) | LOC: WOUND 08:05 | PROVIDERS: ATTEND Surgery | DX: T87.89 Other complications of amputation stump (principal); E11.621 Type 2 diabetes mellitus with foot ulcer; L97.422 Non-pressure chronic ulcer of left heel and midfoot with fat layer exposed; L97.522 Non-pressure chronic ulcer of other part of left foot with fat layer exposed; E11.69 Type 2 diabetes mellitus with other specified complication; M86.372 Chronic multifocal osteomyelitis, left ankle and foot; I10 Essential (primary) hypertension; Y83.5 Amputation of limb(s) as the cause of abnormal reaction of the patient, or of later complication, without mention of misadventure at the time of the procedure | CPT/HCPCS: 11042; 82962; G0277; 99183 ==

== ENCOUNTER 2020-05-28 08:00 | Outpatient (CLI) | payer MEDICARE | END 2020-05-28 10:00 | disposition home or self-care (01) | LOC: WOUND 08:00 | PROVIDERS: ATTEND Surgery | DX: E11.621 Type 2 diabetes mellitus with foot ulcer (principal); L97.422 Non-pressure chronic ulcer of left heel and midfoot with fat layer exposed; L97.522 Non-pressure chronic ulcer of other part of left foot with fat layer exposed; E11.69 Type 2 diabetes mellitus with other specified complication; M86.372 Chronic multifocal osteomyelitis, left ankle and foot; I10 Essential (primary) hypertension | CPT/HCPCS: 82962; G0277; 99183 ==

== ENCOUNTER 2020-05-29 09:33 | Outpatient (CLI) | payer MEDICARE | END 2020-05-29 09:34 | disposition home or self-care (01) | LOC: WOUND 09:33 | PROVIDERS: ATTEND Internal Medicine | DX: T87.89 Other complications of amputation stump (principal); E11.621 Type 2 diabetes mellitus with foot ulcer; L97.422 Non-pressure chronic ulcer of left heel and midfoot with fat layer exposed; L97.522 Non-pressure chronic ulcer of other part of left foot with fat layer exposed; E11.69 Type 2 diabetes mellitus with other specified complication; M86.372 Chronic multifocal osteomyelitis, left ankle and foot; I10 Essential (primary) hypertension; Y83.2 Surgical operation with anastomosis, bypass or graft as the cause of abnormal reaction of the patient, or of later complication, without mention of misadventure at the time of the procedure | CPT/HCPCS: 82962; G0277; 99183 ==

== ENCOUNTER 2020-06-02 08:02 | Outpatient (CLI) | payer MEDICARE | END 2020-06-02 08:03 | disposition home or self-care (01) | LOC: WOUND 08:02 | PROVIDERS: ATTEND Internal Medicine | DX: T87.89 Other complications of amputation stump (principal); E11.621 Type 2 diabetes mellitus with foot ulcer; L97.422 Non-pressure chronic ulcer of left heel and midfoot with fat layer exposed; L97.522 Non-pressure chronic ulcer of other part of left foot with fat layer exposed; E11.69 Type 2 diabetes mellitus with other specified complication; M86.372 Chronic multifocal osteomyelitis, left ankle and foot; I10 Essential (primary) hypertension; Y83.2 Surgical operation with anastomosis, bypass or graft as the cause of abnormal reaction of the patient, or of later complication, without mention of misadventure at the time of the procedure | CPT/HCPCS: 82962; G0277; 99183 ==

== ENCOUNTER 2020-06-04 08:05 | Outpatient (CLI) | payer MEDICARE | END 2020-06-04 08:06 | disposition home or self-care (01) | LOC: WOUND 08:05 | PROVIDERS: ATTEND Surgery | DX: T87.89 Other complications of amputation stump (principal); E11.621 Type 2 diabetes mellitus with foot ulcer; L97.422 Non-pressure chronic ulcer of left heel and midfoot with fat layer exposed; L97.522 Non-pressure chronic ulcer of other part of left foot with fat layer exposed; E11.69 Type 2 diabetes mellitus with other specified complication; M86.372 Chronic multifocal osteomyelitis, left ankle and foot; I10 Essential (primary) hypertension; Y83.5 Amputation of limb(s) as the cause of abnormal reaction of the patient, or of later complication, without mention of misadventure at the time of the procedure | CPT/HCPCS: 82962; G0277; 99183 ==

== ENCOUNTER 2020-06-05 08:00 | Outpatient (CLI) | payer MEDICARE | END 2020-06-05 10:00 | disposition home or self-care (01) | LOC: WOUND 08:00 | PROVIDERS: ATTEND Internal Medicine | DX: T87.89 Other complications of amputation stump (principal); E11.621 Type 2 diabetes mellitus with foot ulcer; L97.422 Non-pressure chronic ulcer of left heel and midfoot with fat layer exposed; E11.69 Type 2 diabetes mellitus with other specified complication; M86.372 Chronic multifocal osteomyelitis, left ankle and foot; I10 Essential (primary) hypertension; Y83.5 Amputation of limb(s) as the cause of abnormal reaction of the patient, or of later complication, without mention of misadventure at the time of the procedure | CPT/HCPCS: 82962; G0277; 99183 ==

== ENCOUNTER 2020-06-08 08:20 | Outpatient (CLI) | payer MEDICARE | END 2020-06-08 08:21 | disposition home or self-care (01) | LOC: WOUND 08:20 | PROVIDERS: ATTEND Surgery | DX: T87.89 Other complications of amputation stump (principal); E11.69 Type 2 diabetes mellitus with other specified complication; M86.372 Chronic multifocal osteomyelitis, left ankle and foot; E11.621 Type 2 diabetes mellitus with foot ulcer; L97.422 Non-pressure chronic ulcer of left heel and midfoot with fat layer exposed; I10 Essential (primary) hypertension; Z79.4 Long term (current) use of insulin; Y83.5 Amputation of limb(s) as the cause of abnormal reaction of the patient, or of later complication, without mention of misadventure at the time of the procedure | CPT/HCPCS: 82962; G0277; 99183 ==

== ENCOUNTER 2020-06-09 08:07 | Outpatient (CLI) | payer MEDICARE | END 2020-06-09 08:08 | disposition home or self-care (01) | LOC: WOUND 08:07 | PROVIDERS: ATTEND Internal Medicine | DX: T87.89 Other complications of amputation stump (principal); E11.621 Type 2 diabetes mellitus with foot ulcer; L97.422 Non-pressure chronic ulcer of left heel and midfoot with fat layer exposed; E11.69 Type 2 diabetes mellitus with other specified complication; M86.372 Chronic multifocal osteomyelitis, left ankle and foot; I10 Essential (primary) hypertension; Y83.5 Amputation of limb(s) as the cause of abnormal reaction of the patient, or of later complication, without mention of misadventure at the time of the procedure | CPT/HCPCS: 82962; G0277; 99183 ==

== ENCOUNTER 2020-06-10 08:00 | Outpatient (CLI) | payer MEDICARE | END 2020-06-10 08:01 | disposition home or self-care (01) | LOC: WOUND 08:00 | PROVIDERS: ATTEND Surgery | DX: T87.89 Other complications of amputation stump (principal); E11.621 Type 2 diabetes mellitus with foot ulcer; L97.422 Non-pressure chronic ulcer of left heel and midfoot with fat layer exposed; L97.522 Non-pressure chronic ulcer of other part of left foot with fat layer exposed; E11.69 Type 2 diabetes mellitus with other specified complication; M86.372 Chronic multifocal osteomyelitis, left ankle and foot; I10 Essential (primary) hypertension; Z89.9 Acquired absence of limb, unspecified; Y83.5 Amputation of limb(s) as the cause of abnormal reaction of the patient, or of later complication, without mention of misadventure at the time of the procedure | CPT/HCPCS: 11042; 82962; G0277; 99183 ==

== ENCOUNTER 2020-06-11 07:39 | Outpatient (CLI) | payer MEDICARE | END 2020-06-11 07:40 | disposition home or self-care (01) | LOC: WOUND 07:39 | PROVIDERS: ATTEND Surgery | DX: T87.89 Other complications of amputation stump (principal); E11.621 Type 2 diabetes mellitus with foot ulcer; L97.422 Non-pressure chronic ulcer of left heel and midfoot with fat layer exposed; L97.522 Non-pressure chronic ulcer of other part of left foot with fat layer exposed; E11.69 Type 2 diabetes mellitus with other specified complication; M86.372 Chronic multifocal osteomyelitis, left ankle and foot; I10 Essential (primary) hypertension; Z89.9 Acquired absence of limb, unspecified; Y83.5 Amputation of limb(s) as the cause of abnormal reaction of the patient, or of later complication, without mention of misadventure at the time of the procedure | CPT/HCPCS: 82962; G0277; 99183 ==

== ENCOUNTER 2020-06-12 07:49 | Outpatient (CLI) | payer MEDICARE | END 2020-06-12 07:50 | disposition home or self-care (01) | LOC: WOUND 07:49 | PROVIDERS: ATTEND Internal Medicine | DX: E11.621 Type 2 diabetes mellitus with foot ulcer (principal); L97.422 Non-pressure chronic ulcer of left heel and midfoot with fat layer exposed; E11.69 Type 2 diabetes mellitus with other specified complication; M86.372 Chronic multifocal osteomyelitis, left ankle and foot; I10 Essential (primary) hypertension; Z89.9 Acquired absence of limb, unspecified | CPT/HCPCS: 82962; 99183; G0277 ==

== ENCOUNTER 2020-06-18 08:12 | Outpatient (CLI) | payer MEDICARE | END 2020-06-18 08:13 | disposition home or self-care (01) | LOC: WOUND 08:12 | PROVIDERS: ATTEND Surgery | DX: T87.89 Other complications of amputation stump (principal); E11.621 Type 2 diabetes mellitus with foot ulcer; L97.422 Non-pressure chronic ulcer of left heel and midfoot with fat layer exposed; L97.521 Non-pressure chronic ulcer of other part of left foot limited to breakdown of skin; E11.69 Type 2 diabetes mellitus with other specified complication; M86.372 Chronic multifocal osteomyelitis, left ankle and foot; I10 Essential (primary) hypertension; Z89.9 Acquired absence of limb, unspecified; Y83.5 Amputation of limb(s) as the cause of abnormal reaction of the patient, or of later complication, without mention of misadventure at the time of the procedure ==

== ENCOUNTER 2020-06-22 08:33 | Outpatient (CLI) | payer MEDICARE | END 2020-06-22 08:34 | disposition home or self-care (01) | LOC: WOUND 08:33 | PROVIDERS: ATTEND Surgery | DX: T87.89 Other complications of amputation stump (principal); E11.621 Type 2 diabetes mellitus with foot ulcer; L97.422 Non-pressure chronic ulcer of left heel and midfoot with fat layer exposed; L97.521 Non-pressure chronic ulcer of other part of left foot limited to breakdown of skin; E11.69 Type 2 diabetes mellitus with other specified complication; M86.372 Chronic multifocal osteomyelitis, left ankle and foot; I10 Essential (primary) hypertension; Z89.9 Acquired absence of limb, unspecified; Y83.5 Amputation of limb(s) as the cause of abnormal reaction of the patient, or of later complication, without mention of misadventure at the time of the procedure ==

== ENCOUNTER 2020-07-06 08:12 | Outpatient (CLI) | payer MEDICARE | END 2020-07-06 08:13 | disposition home or self-care (01) | LOC: WOUND 08:12 | PROVIDERS: ATTEND Surgery | DX: T87.89 Other complications of amputation stump (principal); E11.621 Type 2 diabetes mellitus with foot ulcer; L97.522 Non-pressure chronic ulcer of other part of left foot with fat layer exposed; L97.422 Non-pressure chronic ulcer of left heel and midfoot with fat layer exposed; E11.69 Type 2 diabetes mellitus with other specified complication; M86.372 Chronic multifocal osteomyelitis, left ankle and foot; I10 Essential (primary) hypertension; Z89.9 Acquired absence of limb, unspecified; Y83.5 Amputation of limb(s) as the cause of abnormal reaction of the patient, or of later complication, without mention of misadventure at the time of the procedure ==

== ENCOUNTER 2020-07-13 08:09 | Outpatient (CLI) | payer MEDICARE | END 2020-07-13 08:10 | disposition home or self-care (01) | LOC: WOUND 08:09 | PROVIDERS: ATTEND Surgery | DX: T87.89 Other complications of amputation stump (principal); E11.621 Type 2 diabetes mellitus with foot ulcer; L97.522 Non-pressure chronic ulcer of other part of left foot with fat layer exposed; L97.422 Non-pressure chronic ulcer of left heel and midfoot with fat layer exposed; E11.69 Type 2 diabetes mellitus with other specified complication; M86.372 Chronic multifocal osteomyelitis, left ankle and foot; I10 Essential (primary) hypertension; Z89.9 Acquired absence of limb, unspecified; Y83.5 Amputation of limb(s) as the cause of abnormal reaction of the patient, or of later complication, without mention of misadventure at the time of the procedure | CPT/HCPCS: 15275; Q4186 ==

== ENCOUNTER 2020-07-20 08:12 | Outpatient (CLI) | payer MEDICARE | END 2020-07-20 08:13 | disposition home or self-care (01) | LOC: WOUND 08:12 | PROVIDERS: ATTEND Surgery | DX: T87.89 Other complications of amputation stump (principal); E11.621 Type 2 diabetes mellitus with foot ulcer; L97.522 Non-pressure chronic ulcer of other part of left foot with fat layer exposed; L97.422 Non-pressure chronic ulcer of left heel and midfoot with fat layer exposed; E11.69 Type 2 diabetes mellitus with other specified complication; M86.372 Chronic multifocal osteomyelitis, left ankle and foot; I10 Essential (primary) hypertension; Z89.9 Acquired absence of limb, unspecified; Y83.5 Amputation of limb(s) as the cause of abnormal reaction of the patient, or of later complication, without mention of misadventure at the time of the procedure | CPT/HCPCS: 15275; Q4186 ==

== ENCOUNTER 2020-07-27 08:24 | Outpatient (CLI) | payer MEDICARE | END 2020-07-27 08:25 | disposition home or self-care (01) | LOC: WOUND 08:24 | PROVIDERS: ATTEND Surgery | DX: T87.89 Other complications of amputation stump (principal); E11.621 Type 2 diabetes mellitus with foot ulcer; L97.522 Non-pressure chronic ulcer of other part of left foot with fat layer exposed; L97.422 Non-pressure chronic ulcer of left heel and midfoot with fat layer exposed; E11.69 Type 2 diabetes mellitus with other specified complication; M86.372 Chronic multifocal osteomyelitis, left ankle and foot; I10 Essential (primary) hypertension; Z89.9 Acquired absence of limb, unspecified; Y83.5 Amputation of limb(s) as the cause of abnormal reaction of the patient, or of later complication, without mention of misadventure at the time of the procedure | CPT/HCPCS: 15275; Q4186 ==

== ENCOUNTER 2020-08-03 08:27 | Outpatient (CLI) | payer MEDICARE | END 2020-08-03 08:28 | disposition home or self-care (01) | LOC: WOUND 08:27 | PROVIDERS: ATTEND Surgery | DX: T87.89 Other complications of amputation stump (principal); E11.621 Type 2 diabetes mellitus with foot ulcer; L97.522 Non-pressure chronic ulcer of other part of left foot with fat layer exposed; L97.422 Non-pressure chronic ulcer of left heel and midfoot with fat layer exposed; E11.69 Type 2 diabetes mellitus with other specified complication; M86.372 Chronic multifocal osteomyelitis, left ankle and foot; I10 Essential (primary) hypertension; Z89.9 Acquired absence of limb, unspecified; Y83.5 Amputation of limb(s) as the cause of abnormal reaction of the patient, or of later complication, without mention of misadventure at the time of the procedure | CPT/HCPCS: 15275; Q4186 ==

== ENCOUNTER 2020-08-10 08:02 | Outpatient (CLI) | payer MEDICARE | END 2020-08-10 08:03 | disposition home or self-care (01) | LOC: WOUND 08:02 | PROVIDERS: ATTEND Surgery | DX: T87.89 Other complications of amputation stump (principal); E11.621 Type 2 diabetes mellitus with foot ulcer; L97.522 Non-pressure chronic ulcer of other part of left foot with fat layer exposed; L97.422 Non-pressure chronic ulcer of left heel and midfoot with fat layer exposed; E11.69 Type 2 diabetes mellitus with other specified complication; M86.372 Chronic multifocal osteomyelitis, left ankle and foot; I10 Essential (primary) hypertension; Z89.9 Acquired absence of limb, unspecified; Y83.5 Amputation of limb(s) as the cause of abnormal reaction of the patient, or of later complication, without mention of misadventure at the time of the procedure | CPT/HCPCS: 15275; Q4186 ==

== ENCOUNTER 2020-08-17 10:15 | Outpatient (CLI) | payer MEDICARE | END 2020-08-17 10:16 | disposition home or self-care (01) | LOC: WOUND 10:15 | PROVIDERS: ATTEND Surgery | DX: T87.89 Other complications of amputation stump (principal); E11.621 Type 2 diabetes mellitus with foot ulcer; L97.522 Non-pressure chronic ulcer of other part of left foot with fat layer exposed; L97.422 Non-pressure chronic ulcer of left heel and midfoot with fat layer exposed; E11.69 Type 2 diabetes mellitus with other specified complication; M86.372 Chronic multifocal osteomyelitis, left ankle and foot; I10 Essential (primary) hypertension; Z89.9 Acquired absence of limb, unspecified; Y83.5 Amputation of limb(s) as the cause of abnormal reaction of the patient, or of later complication, without mention of misadventure at the time of the procedure | CPT/HCPCS: 15275; Q4186 ==

== ENCOUNTER 2020-08-24 08:37 | Outpatient (CLI) | payer MEDICARE | END 2020-08-24 08:38 | disposition home or self-care (01) | LOC: WOUND 08:37 | PROVIDERS: ATTEND Surgery | DX: T87.89 Other complications of amputation stump (principal); E11.621 Type 2 diabetes mellitus with foot ulcer; L97.522 Non-pressure chronic ulcer of other part of left foot with fat layer exposed; L97.422 Non-pressure chronic ulcer of left heel and midfoot with fat layer exposed; E11.69 Type 2 diabetes mellitus with other specified complication; M86.372 Chronic multifocal osteomyelitis, left ankle and foot; I10 Essential (primary) hypertension; Z89.9 Acquired absence of limb, unspecified; Y83.5 Amputation of limb(s) as the cause of abnormal reaction of the patient, or of later complication, without mention of misadventure at the time of the procedure | CPT/HCPCS: 99214; G0463 ==

== ENCOUNTER 2020-09-07 08:16 | Outpatient (CLI) | payer MEDICARE ==
[2020-09-07] MEDS ORDERED: SILVER NITRATE APPLICATOR 1 EA TP SCH (10:11)
== END 2020-09-07 08:17 | disposition home or self-care (01) ==
LOC: WOUND 08:16
PROVIDERS: ATTEND Surgery
DX: T87.89 Other complications of amputation stump (principal); E11.621 Type 2 diabetes mellitus with foot ulcer; L97.522 Non-pressure chronic ulcer of other part of left foot with fat layer exposed; L97.422 Non-pressure chronic ulcer of left heel and midfoot with fat layer exposed; E11.69 Type 2 diabetes mellitus with other specified complication; M86.372 Chronic multifocal osteomyelitis, left ankle and foot; I10 Essential (primary) hypertension; Z89.9 Acquired absence of limb, unspecified; Y83.5 Amputation of limb(s) as the cause of abnormal reaction of the patient, or of later complication, without mention of misadventure at the time of the procedure
CPT/HCPCS: 15275; 17250; Q4186

== ENCOUNTER 2020-09-14 08:11 | Outpatient (CLI) | payer MEDICARE | END 2020-09-14 08:12 | disposition home or self-care (01) | LOC: WOUND 08:11 | PROVIDERS: ATTEND Surgery | DX: T87.89 Other complications of amputation stump (principal); E11.621 Type 2 diabetes mellitus with foot ulcer; L97.521 Non-pressure chronic ulcer of other part of left foot limited to breakdown of skin; L97.522 Non-pressure chronic ulcer of other part of left foot with fat layer exposed; L97.422 Non-pressure chronic ulcer of left heel and midfoot with fat layer exposed; E11.69 Type 2 diabetes mellitus with other specified complication; M86.372 Chronic multifocal osteomyelitis, left ankle and foot; I10 Essential (primary) hypertension; Z89.9 Acquired absence of limb, unspecified; Y83.5 Amputation of limb(s) as the cause of abnormal reaction of the patient, or of later complication, without mention of misadventure at the time of the procedure | CPT/HCPCS: 99214; G0463 ==

== ENCOUNTER 2020-09-28 08:14 | Outpatient (CLI) | payer MEDICARE | END 2020-09-28 08:15 | disposition home or self-care (01) | LOC: WOUND 08:14 | PROVIDERS: ATTEND Surgery | DX: T87.89 Other complications of amputation stump (principal); E11.621 Type 2 diabetes mellitus with foot ulcer; L97.522 Non-pressure chronic ulcer of other part of left foot with fat layer exposed; L97.422 Non-pressure chronic ulcer of left heel and midfoot with fat layer exposed; E11.69 Type 2 diabetes mellitus with other specified complication; M86.372 Chronic multifocal osteomyelitis, left ankle and foot; I10 Essential (primary) hypertension; Z89.9 Acquired absence of limb, unspecified; Y83.5 Amputation of limb(s) as the cause of abnormal reaction of the patient, or of later complication, without mention of misadventure at the time of the procedure ==

== ENCOUNTER 2020-10-12 08:23 | Outpatient (CLI) | payer MEDICARE | END 2020-10-12 08:24 | disposition home or self-care (01) | LOC: WOUND 08:23 | PROVIDERS: ATTEND Surgery | DX: T87.89 Other complications of amputation stump (principal); E11.621 Type 2 diabetes mellitus with foot ulcer; L97.522 Non-pressure chronic ulcer of other part of left foot with fat layer exposed; L97.422 Non-pressure chronic ulcer of left heel and midfoot with fat layer exposed; E11.69 Type 2 diabetes mellitus with other specified complication; M86.372 Chronic multifocal osteomyelitis, left ankle and foot; I10 Essential (primary) hypertension; Z89.9 Acquired absence of limb, unspecified; Y83.5 Amputation of limb(s) as the cause of abnormal reaction of the patient, or of later complication, without mention of misadventure at the time of the procedure | CPT/HCPCS: 15275; Q4186 ==

== ENCOUNTER 2020-10-19 08:02 | Outpatient (CLI) | payer MEDICARE | END 2020-10-19 08:03 | disposition home or self-care (01) | LOC: WOUND 08:02 | PROVIDERS: ATTEND Surgery | DX: T87.89 Other complications of amputation stump (principal); E11.621 Type 2 diabetes mellitus with foot ulcer; L97.522 Non-pressure chronic ulcer of other part of left foot with fat layer exposed; L97.422 Non-pressure chronic ulcer of left heel and midfoot with fat layer exposed; E11.69 Type 2 diabetes mellitus with other specified complication; M86.372 Chronic multifocal osteomyelitis, left ankle and foot; I10 Essential (primary) hypertension; Z89.9 Acquired absence of limb, unspecified; Y83.5 Amputation of limb(s) as the cause of abnormal reaction of the patient, or of later complication, without mention of misadventure at the time of the procedure | CPT/HCPCS: 15275; Q4186 ==

== ENCOUNTER 2020-10-26 08:04 | Outpatient (CLI) | payer MEDICARE | END 2020-10-26 08:05 | disposition home or self-care (01) | LOC: WOUND 08:04 | PROVIDERS: ATTEND Surgery | DX: T87.89 Other complications of amputation stump (principal); E11.621 Type 2 diabetes mellitus with foot ulcer; L97.522 Non-pressure chronic ulcer of other part of left foot with fat layer exposed; L97.422 Non-pressure chronic ulcer of left heel and midfoot with fat layer exposed; E11.69 Type 2 diabetes mellitus with other specified complication; M86.372 Chronic multifocal osteomyelitis, left ankle and foot; I10 Essential (primary) hypertension; Z89.9 Acquired absence of limb, unspecified; Y83.5 Amputation of limb(s) as the cause of abnormal reaction of the patient, or of later complication, without mention of misadventure at the time of the procedure | CPT/HCPCS: 15275; Q4186 ==

== ENCOUNTER 2020-11-02 08:06 | Outpatient (CLI) | payer MEDICARE | END 2020-11-02 08:07 | disposition home or self-care (01) | LOC: WOUND 08:06 | PROVIDERS: ATTEND Surgery | DX: T87.89 Other complications of amputation stump (principal); E11.621 Type 2 diabetes mellitus with foot ulcer; L97.522 Non-pressure chronic ulcer of other part of left foot with fat layer exposed; L97.422 Non-pressure chronic ulcer of left heel and midfoot with fat layer exposed; E11.69 Type 2 diabetes mellitus with other specified complication; M86.372 Chronic multifocal osteomyelitis, left ankle and foot; I11.0 Hypertensive heart disease with heart failure; Z89.9 Acquired absence of limb, unspecified; Y83.5 Amputation of limb(s) as the cause of abnormal reaction of the patient, or of later complication, without mention of misadventure at the time of the procedure ==

== ENCOUNTER 2020-11-09 08:32 | Outpatient (CLI) | payer MEDICARE | END 2020-11-09 08:33 | disposition home or self-care (01) | LOC: WOUND 08:32 | PROVIDERS: ATTEND Surgery | DX: T87.89 Other complications of amputation stump (principal); E11.621 Type 2 diabetes mellitus with foot ulcer; L97.522 Non-pressure chronic ulcer of other part of left foot with fat layer exposed; L97.422 Non-pressure chronic ulcer of left heel and midfoot with fat layer exposed; E11.69 Type 2 diabetes mellitus with other specified complication; M86.372 Chronic multifocal osteomyelitis, left ankle and foot; I11.0 Hypertensive heart disease with heart failure; Z89.9 Acquired absence of limb, unspecified; Y83.5 Amputation of limb(s) as the cause of abnormal reaction of the patient, or of later complication, without mention of misadventure at the time of the procedure ==

== ENCOUNTER 2020-11-16 08:02 | Outpatient (CLI) | payer MEDICARE | END 2020-11-16 08:03 | disposition home or self-care (01) | LOC: WOUND 08:02 | PROVIDERS: ATTEND Surgery | DX: T87.89 Other complications of amputation stump (principal); E11.621 Type 2 diabetes mellitus with foot ulcer; L97.522 Non-pressure chronic ulcer of other part of left foot with fat layer exposed; L97.422 Non-pressure chronic ulcer of left heel and midfoot with fat layer exposed; E11.69 Type 2 diabetes mellitus with other specified complication; M86.372 Chronic multifocal osteomyelitis, left ankle and foot; I11.0 Hypertensive heart disease with heart failure; Z89.9 Acquired absence of limb, unspecified; Y83.5 Amputation of limb(s) as the cause of abnormal reaction of the patient, or of later complication, without mention of misadventure at the time of the procedure | CPT/HCPCS: 99214; G0463 ==

== ENCOUNTER 2020-12-07 10:11 | Outpatient (CLI) | payer MEDICARE ==
[2020-12-07] MEDS ORDERED: LIDOCAINE (4%) 40 MG/ML TOPICAL SOLN 50 ML BOTTLE TP ONE (10:16)
[2020-12-07] MEDS ORDERED: VITAMIN A & D OINT 56.7 GM TP SCH (11:00)
== END 2020-12-07 10:12 | disposition home or self-care (01) ==
LOC: WOUND 10:11
PROVIDERS: ATTEND Surgery
DX: T87.89 Other complications of amputation stump (principal); E11.621 Type 2 diabetes mellitus with foot ulcer; L97.522 Non-pressure chronic ulcer of other part of left foot with fat layer exposed; L97.422 Non-pressure chronic ulcer of left heel and midfoot with fat layer exposed; E11.69 Type 2 diabetes mellitus with other specified complication; M86.372 Chronic multifocal osteomyelitis, left ankle and foot; I10 Essential (primary) hypertension; Z89.9 Acquired absence of limb, unspecified; Y83.5 Amputation of limb(s) as the cause of abnormal reaction of the patient, or of later complication, without mention of misadventure at the time of the procedure
CPT/HCPCS: A6250; G0463; 99214

== ENCOUNTER 2020-12-21 08:21 | Outpatient (CLI) | payer MEDICARE | END 2020-12-21 08:22 | disposition home or self-care (01) | LOC: WOUND 08:21 | PROVIDERS: ATTEND Surgery | DX: T87.89 Other complications of amputation stump (principal); E11.621 Type 2 diabetes mellitus with foot ulcer; L97.522 Non-pressure chronic ulcer of other part of left foot with fat layer exposed; L97.422 Non-pressure chronic ulcer of left heel and midfoot with fat layer exposed; E11.69 Type 2 diabetes mellitus with other specified complication; M86.372 Chronic multifocal osteomyelitis, left ankle and foot; I10 Essential (primary) hypertension; Z89.9 Acquired absence of limb, unspecified; Z88.8 Allergy status to other drugs, medicaments and biological substances; Y83.5 Amputation of limb(s) as the cause of abnormal reaction of the patient, or of later complication, without mention of misadventure at the time of the procedure ==

== ENCOUNTER 2021-01-11 09:05 | Outpatient (CLI) | payer MEDICARE | END 2021-01-11 09:06 | disposition home or self-care (01) | LOC: WOUND 09:05 | PROVIDERS: ATTEND Surgery | DX: T87.89 Other complications of amputation stump (principal); E11.621 Type 2 diabetes mellitus with foot ulcer; L97.522 Non-pressure chronic ulcer of other part of left foot with fat layer exposed; L97.422 Non-pressure chronic ulcer of left heel and midfoot with fat layer exposed; E11.69 Type 2 diabetes mellitus with other specified complication; M86.372 Chronic multifocal osteomyelitis, left ankle and foot; I10 Essential (primary) hypertension; Z89.9 Acquired absence of limb, unspecified; Z88.8 Allergy status to other drugs, medicaments and biological substances; Y83.5 Amputation of limb(s) as the cause of abnormal reaction of the patient, or of later complication, without mention of misadventure at the time of the procedure ==

== ENCOUNTER 2021-02-01 08:12 | Outpatient (CLI) | payer MEDICARE ==
[2021-02-01] MEDS ORDERED: LIDOCAINE (4%) 40 MG/ML TOPICAL SOLN 50 ML BOTTLE TP ONE (08:20)
== END 2021-02-01 08:13 | disposition home or self-care (01) ==
LOC: WOUND 08:12
PROVIDERS: ATTEND Surgery
DX: T87.89 Other complications of amputation stump (principal); E11.621 Type 2 diabetes mellitus with foot ulcer; L97.522 Non-pressure chronic ulcer of other part of left foot with fat layer exposed; L97.422 Non-pressure chronic ulcer of left heel and midfoot with fat layer exposed; E11.69 Type 2 diabetes mellitus with other specified complication; M86.372 Chronic multifocal osteomyelitis, left ankle and foot; I10 Essential (primary) hypertension; Z89.9 Acquired absence of limb, unspecified; Z88.8 Allergy status to other drugs, medicaments and biological substances; Y83.5 Amputation of limb(s) as the cause of abnormal reaction of the patient, or of later complication, without mention of misadventure at the time of the procedure

== ENCOUNTER 2021-02-15 08:12 | Outpatient (CLI) | payer MEDICARE ==
[2021-02-15] MEDS ORDERED: LIDOCAINE (4%) 40 MG/ML TOPICAL SOLN 50 ML BOTTLE TP SCH (09:00)
== END 2021-02-15 08:13 | disposition home or self-care (01) ==
LOC: WOUND 08:12
PROVIDERS: ATTEND Surgery
DX: T87.89 Other complications of amputation stump (principal); E11.621 Type 2 diabetes mellitus with foot ulcer; L97.522 Non-pressure chronic ulcer of other part of left foot with fat layer exposed; L97.422 Non-pressure chronic ulcer of left heel and midfoot with fat layer exposed; E11.69 Type 2 diabetes mellitus with other specified complication; M86.372 Chronic multifocal osteomyelitis, left ankle and foot; I10 Essential (primary) hypertension; Z89.9 Acquired absence of limb, unspecified; Z88.8 Allergy status to other drugs, medicaments and biological substances; Y83.5 Amputation of limb(s) as the cause of abnormal reaction of the patient, or of later complication, without mention of misadventure at the time of the procedure

== ENCOUNTER 2021-03-15 08:38 | Outpatient (CLI) | payer MEDICARE ==
[2021-03-15] MEDS ORDERED: LIDOCAINE (4%) 40 MG/ML TOPICAL SOLN 50 ML BOTTLE TP ONE (08:47)
== END 2021-03-15 08:39 | disposition home or self-care (01) ==
LOC: WOUND 08:38
PROVIDERS: ATTEND Surgery
DX: T87.89 Other complications of amputation stump (principal); E11.621 Type 2 diabetes mellitus with foot ulcer; L97.522 Non-pressure chronic ulcer of other part of left foot with fat layer exposed; L97.422 Non-pressure chronic ulcer of left heel and midfoot with fat layer exposed; E11.69 Type 2 diabetes mellitus with other specified complication; M86.372 Chronic multifocal osteomyelitis, left ankle and foot; I10 Essential (primary) hypertension; Z89.9 Acquired absence of limb, unspecified; Z88.8 Allergy status to other drugs, medicaments and biological substances; Y83.5 Amputation of limb(s) as the cause of abnormal reaction of the patient, or of later complication, without mention of misadventure at the time of the procedure

== ENCOUNTER 2021-04-05 08:47 | Outpatient (CLI) | payer MEDICARE ==
[2021-04-05] MEDS ORDERED: LIDOCAINE (4%) 40 MG/ML TOPICAL SOLN 50 ML BOTTLE TP ONE (08:48)
== END 2021-04-05 08:48 | disposition home or self-care (01) ==
LOC: WOUND 08:47
PROVIDERS: ATTEND Surgery
DX: T87.89 Other complications of amputation stump (principal); E11.621 Type 2 diabetes mellitus with foot ulcer; L97.522 Non-pressure chronic ulcer of other part of left foot with fat layer exposed; L97.422 Non-pressure chronic ulcer of left heel and midfoot with fat layer exposed; E11.69 Type 2 diabetes mellitus with other specified complication; M86.372 Chronic multifocal osteomyelitis, left ankle and foot; I10 Essential (primary) hypertension; Z89.9 Acquired absence of limb, unspecified; Z88.8 Allergy status to other drugs, medicaments and biological substances; Y83.5 Amputation of limb(s) as the cause of abnormal reaction of the patient, or of later complication, without mention of misadventure at the time of the procedure

== ENCOUNTER 2021-04-26 08:56 | Outpatient (CLI) | payer MEDICARE ==
[2021-04-26] MEDS ORDERED: LIDOCAINE (4%) 40 MG/ML TOPICAL SOLN 50 ML BOTTLE TP ONE (09:03)
== END 2021-04-26 08:57 | disposition home or self-care (01) ==
LOC: WOUND 08:56
PROVIDERS: ATTEND Surgery
DX: T87.89 Other complications of amputation stump (principal); E11.621 Type 2 diabetes mellitus with foot ulcer; L97.522 Non-pressure chronic ulcer of other part of left foot with fat layer exposed; L97.422 Non-pressure chronic ulcer of left heel and midfoot with fat layer exposed; E11.69 Type 2 diabetes mellitus with other specified complication; M86.372 Chronic multifocal osteomyelitis, left ankle and foot; I10 Essential (primary) hypertension; Z89.9 Acquired absence of limb, unspecified; Z88.8 Allergy status to other drugs, medicaments and biological substances; Y83.5 Amputation of limb(s) as the cause of abnormal reaction of the patient, or of later complication, without mention of misadventure at the time of the procedure
CPT/HCPCS: 82962

== ENCOUNTER 2021-05-17 09:28 | Outpatient (CLI) | payer MEDICARE ==
[2021-05-17] MEDS ORDERED: LIDOCAINE (4%) 40 MG/ML TOPICAL SOLN 50 ML BOTTLE TP ONE (09:39)
== END 2021-05-17 09:29 | disposition home or self-care (01) ==
LOC: WOUND 09:28
PROVIDERS: ATTEND Surgery
DX: T87.89 Other complications of amputation stump (principal); E11.621 Type 2 diabetes mellitus with foot ulcer; L97.522 Non-pressure chronic ulcer of other part of left foot with fat layer exposed; L97.422 Non-pressure chronic ulcer of left heel and midfoot with fat layer exposed; E11.69 Type 2 diabetes mellitus with other specified complication; M86.372 Chronic multifocal osteomyelitis, left ankle and foot; I10 Essential (primary) hypertension; Z89.9 Acquired absence of limb, unspecified; Z88.8 Allergy status to other drugs, medicaments and biological substances; Y83.5 Amputation of limb(s) as the cause of abnormal reaction of the patient, or of later complication, without mention of misadventure at the time of the procedure

== ENCOUNTER 2021-06-07 08:11 | Outpatient (CLI) | payer MEDICARE ==
[2021-06-07] MEDS ORDERED: LIDOCAINE (4%) 40 MG/ML TOPICAL SOLN 50 ML BOTTLE TP ONE (08:39)
== END 2021-06-07 08:12 | disposition home or self-care (01) ==
LOC: WOUND 08:11
PROVIDERS: ATTEND Surgery
DX: T87.89 Other complications of amputation stump (principal); E11.621 Type 2 diabetes mellitus with foot ulcer; L97.522 Non-pressure chronic ulcer of other part of left foot with fat layer exposed; L97.422 Non-pressure chronic ulcer of left heel and midfoot with fat layer exposed; E11.69 Type 2 diabetes mellitus with other specified complication; M86.372 Chronic multifocal osteomyelitis, left ankle and foot; I10 Essential (primary) hypertension; Z89.9 Acquired absence of limb, unspecified; Z88.8 Allergy status to other drugs, medicaments and biological substances; Y83.5 Amputation of limb(s) as the cause of abnormal reaction of the patient, or of later complication, without mention of misadventure at the time of the procedure

== ENCOUNTER 2021-06-28 08:08 | Outpatient (CLI) | payer MEDICARE ==
[2021-06-28] MEDS ORDERED: LIDOCAINE (4%) 40 MG/ML TOPICAL SOLN 50 ML BOTTLE TP ONE (08:14)
[2021-06-28] MEDS ORDERED: SILVER NITRATE APPLICATOR 1 EA TP ONE (08:51)
== END 2021-06-28 08:09 | disposition home or self-care (01) ==
LOC: WOUND 08:08
PROVIDERS: ATTEND Surgery
DX: T87.89 Other complications of amputation stump (principal); E11.621 Type 2 diabetes mellitus with foot ulcer; L97.522 Non-pressure chronic ulcer of other part of left foot with fat layer exposed; L97.422 Non-pressure chronic ulcer of left heel and midfoot with fat layer exposed; E11.69 Type 2 diabetes mellitus with other specified complication; M86.372 Chronic multifocal osteomyelitis, left ankle and foot; I10 Essential (primary) hypertension; Z89.9 Acquired absence of limb, unspecified; Z88.8 Allergy status to other drugs, medicaments and biological substances; Y83.5 Amputation of limb(s) as the cause of abnormal reaction of the patient, or of later complication, without mention of misadventure at the time of the procedure
CPT/HCPCS: 17250

== ENCOUNTER 2021-07-26 08:36 | Outpatient (CLI) | payer MEDICARE ==
[2021-07-26] MEDS ORDERED: SILVER NITRATE APPLICATOR 1 EA TP ONE (09:29)
== END 2021-07-26 08:37 | disposition home or self-care (01) ==
LOC: WOUND 08:36
PROVIDERS: ATTEND Surgery
DX: T87.89 Other complications of amputation stump (principal); E11.621 Type 2 diabetes mellitus with foot ulcer; L97.522 Non-pressure chronic ulcer of other part of left foot with fat layer exposed; L97.422 Non-pressure chronic ulcer of left heel and midfoot with fat layer exposed; E11.69 Type 2 diabetes mellitus with other specified complication; M86.372 Chronic multifocal osteomyelitis, left ankle and foot; I10 Essential (primary) hypertension; Z89.9 Acquired absence of limb, unspecified; Z88.8 Allergy status to other drugs, medicaments and biological substances; Y83.5 Amputation of limb(s) as the cause of abnormal reaction of the patient, or of later complication, without mention of misadventure at the time of the procedure
CPT/HCPCS: 17250; G0463; 99213

== ENCOUNTER 2021-08-23 08:09 | Outpatient (CLI) | payer MEDICARE ==
[2021-08-23] MEDS ORDERED: LIDOCAINE (4%) 40 MG/ML TOPICAL SOLN 50 ML BOTTLE TP SCH (08:30)
== END 2021-08-23 08:10 | disposition home or self-care (01) ==
LOC: WOUND 08:09
PROVIDERS: ATTEND Surgery
DX: T87.89 Other complications of amputation stump (principal); E11.621 Type 2 diabetes mellitus with foot ulcer; L97.522 Non-pressure chronic ulcer of other part of left foot with fat layer exposed; L97.422 Non-pressure chronic ulcer of left heel and midfoot with fat layer exposed; E11.69 Type 2 diabetes mellitus with other specified complication; M86.372 Chronic multifocal osteomyelitis, left ankle and foot; I10 Essential (primary) hypertension; Z89.9 Acquired absence of limb, unspecified; Z88.8 Allergy status to other drugs, medicaments and biological substances; Y83.5 Amputation of limb(s) as the cause of abnormal reaction of the patient, or of later complication, without mention of misadventure at the time of the procedure
CPT/HCPCS: 15275; Q4121

== ENCOUNTER 2021-08-30 08:10 | Outpatient (CLI) | payer MEDICARE ==
[2021-08-30] MEDS ORDERED: LIDOCAINE (4%) 40 MG/ML TOPICAL SOLN 50 ML BOTTLE TP ONE (08:12)
== END 2021-08-30 08:11 | disposition home or self-care (01) ==
LOC: WOUND 08:10
PROVIDERS: ATTEND Surgery
DX: T87.89 Other complications of amputation stump (principal); E11.621 Type 2 diabetes mellitus with foot ulcer; L97.522 Non-pressure chronic ulcer of other part of left foot with fat layer exposed; L97.422 Non-pressure chronic ulcer of left heel and midfoot with fat layer exposed; E11.69 Type 2 diabetes mellitus with other specified complication; M86.372 Chronic multifocal osteomyelitis, left ankle and foot; I10 Essential (primary) hypertension; Z89.9 Acquired absence of limb, unspecified; Z88.8 Allergy status to other drugs, medicaments and biological substances; Y83.5 Amputation of limb(s) as the cause of abnormal reaction of the patient, or of later complication, without mention of misadventure at the time of the procedure
CPT/HCPCS: 15275; Q4121

== ENCOUNTER 2021-09-20 08:08 | Outpatient (CLI) | payer MEDICARE ==
[2021-09-20] MEDS ORDERED: LIDOCAINE (4%) 40 MG/ML TOPICAL SOLN 50 ML BOTTLE TP ONE (08:20)
== END 2021-09-20 08:09 | disposition home or self-care (01) ==
LOC: WOUND 08:08
PROVIDERS: ATTEND Surgery
DX: T87.89 Other complications of amputation stump (principal); E11.621 Type 2 diabetes mellitus with foot ulcer; L97.522 Non-pressure chronic ulcer of other part of left foot with fat layer exposed; L97.422 Non-pressure chronic ulcer of left heel and midfoot with fat layer exposed; E11.69 Type 2 diabetes mellitus with other specified complication; M86.372 Chronic multifocal osteomyelitis, left ankle and foot; I10 Essential (primary) hypertension; Z89.9 Acquired absence of limb, unspecified; Z88.8 Allergy status to other drugs, medicaments and biological substances; Y83.5 Amputation of limb(s) as the cause of abnormal reaction of the patient, or of later complication, without mention of misadventure at the time of the procedure
CPT/HCPCS: 15275; Q4121

== ENCOUNTER 2021-10-04 09:43 | Outpatient (CLI) | payer MEDICARE ==
[2021-10-04] MEDS ORDERED: LIDOCAINE (4%) 40 MG/ML TOPICAL SOLN 50 ML BOTTLE TP ONE (10:13)
== END 2021-10-04 09:44 | disposition home or self-care (01) ==
LOC: WOUND 09:43
PROVIDERS: ATTEND Surgery
DX: T87.89 Other complications of amputation stump (principal); E11.621 Type 2 diabetes mellitus with foot ulcer; L97.522 Non-pressure chronic ulcer of other part of left foot with fat layer exposed; L97.422 Non-pressure chronic ulcer of left heel and midfoot with fat layer exposed; E11.69 Type 2 diabetes mellitus with other specified complication; M86.372 Chronic multifocal osteomyelitis, left ankle and foot; I10 Essential (primary) hypertension; Z89.9 Acquired absence of limb, unspecified; Z88.8 Allergy status to other drugs, medicaments and biological substances; Y83.5 Amputation of limb(s) as the cause of abnormal reaction of the patient, or of later complication, without mention of misadventure at the time of the procedure
CPT/HCPCS: 15275; Q4121

== ENCOUNTER 2021-10-11 08:25 | Outpatient (CLI) | payer MEDICARE ==
[2021-10-11] MEDS ORDERED: LIDOCAINE (4%) 40 MG/ML TOPICAL SOLN 50 ML BOTTLE TP ONE (08:27)
== END 2021-10-11 08:26 | disposition home or self-care (01) ==
LOC: WOUND 08:25
PROVIDERS: ATTEND Surgery
DX: T87.89 Other complications of amputation stump (principal); E11.621 Type 2 diabetes mellitus with foot ulcer; L97.522 Non-pressure chronic ulcer of other part of left foot with fat layer exposed; L97.422 Non-pressure chronic ulcer of left heel and midfoot with fat layer exposed; E11.69 Type 2 diabetes mellitus with other specified complication; M86.372 Chronic multifocal osteomyelitis, left ankle and foot; I10 Essential (primary) hypertension; Z89.9 Acquired absence of limb, unspecified; Z88.8 Allergy status to other drugs, medicaments and biological substances; Y83.8 Other surgical procedures as the cause of abnormal reaction of the patient, or of later complication, without mention of misadventure at the time of the procedure

== ENCOUNTER 2021-10-18 08:10 | Outpatient (CLI) | payer MEDICARE ==
[2021-10-18] MEDS ORDERED: LIDOCAINE (4%) 40 MG/ML TOPICAL SOLN 50 ML BOTTLE TP ONE (08:13)
== END 2021-10-18 08:11 | disposition home or self-care (01) ==
LOC: WOUND 08:10
PROVIDERS: ATTEND Surgery
DX: T87.89 Other complications of amputation stump (principal); E11.621 Type 2 diabetes mellitus with foot ulcer; L97.522 Non-pressure chronic ulcer of other part of left foot with fat layer exposed; L97.422 Non-pressure chronic ulcer of left heel and midfoot with fat layer exposed; E11.69 Type 2 diabetes mellitus with other specified complication; M86.372 Chronic multifocal osteomyelitis, left ankle and foot; I10 Essential (primary) hypertension; Z89.9 Acquired absence of limb, unspecified; Z88.8 Allergy status to other drugs, medicaments and biological substances; Y83.5 Amputation of limb(s) as the cause of abnormal reaction of the patient, or of later complication, without mention of misadventure at the time of the procedure
CPT/HCPCS: 15275; Q4121

== ENCOUNTER 2021-10-25 08:06 | Outpatient (CLI) | payer MEDICARE ==
[2021-10-25] MEDS ORDERED: LIDOCAINE (4%) 40 MG/ML TOPICAL SOLN 50 ML BOTTLE TP SCH (08:30)
== END 2021-10-25 08:07 | disposition home or self-care (01) ==
LOC: WOUND 08:06
PROVIDERS: ATTEND Surgery
DX: T87.89 Other complications of amputation stump (principal); E11.621 Type 2 diabetes mellitus with foot ulcer; L97.522 Non-pressure chronic ulcer of other part of left foot with fat layer exposed; L97.422 Non-pressure chronic ulcer of left heel and midfoot with fat layer exposed; E11.69 Type 2 diabetes mellitus with other specified complication; M86.372 Chronic multifocal osteomyelitis, left ankle and foot; I10 Essential (primary) hypertension; Z89.9 Acquired absence of limb, unspecified; Z88.8 Allergy status to other drugs, medicaments and biological substances; Y83.5 Amputation of limb(s) as the cause of abnormal reaction of the patient, or of later complication, without mention of misadventure at the time of the procedure
CPT/HCPCS: 15275; Q4121

== ENCOUNTER 2021-11-01 08:08 | Outpatient (CLI) | payer MEDICARE ==
[2021-11-01] MEDS ORDERED: LIDOCAINE (4%) 40 MG/ML TOPICAL SOLN 50 ML BOTTLE TP ONE (08:16)
== END 2021-11-01 08:09 | disposition home or self-care (01) ==
LOC: WOUND 08:08
PROVIDERS: ATTEND Surgery
DX: T87.89 Other complications of amputation stump (principal); E11.621 Type 2 diabetes mellitus with foot ulcer; L97.522 Non-pressure chronic ulcer of other part of left foot with fat layer exposed; L97.422 Non-pressure chronic ulcer of left heel and midfoot with fat layer exposed; E11.69 Type 2 diabetes mellitus with other specified complication; M86.372 Chronic multifocal osteomyelitis, left ankle and foot; I10 Essential (primary) hypertension; Z89.9 Acquired absence of limb, unspecified; Z88.8 Allergy status to other drugs, medicaments and biological substances; Y83.5 Amputation of limb(s) as the cause of abnormal reaction of the patient, or of later complication, without mention of misadventure at the time of the procedure
CPT/HCPCS: 15275; Q4121

== ENCOUNTER 2021-11-08 08:18 | Outpatient (CLI) | payer MEDICARE ==
[2021-11-08] MEDS ORDERED: LIDOCAINE (4%) 40 MG/ML TOPICAL SOLN 50 ML BOTTLE TP ONE (08:23)
== END 2021-11-08 08:19 | disposition home or self-care (01) ==
LOC: WOUND 08:18
PROVIDERS: ATTEND Surgery
DX: T87.89 Other complications of amputation stump (principal); E11.621 Type 2 diabetes mellitus with foot ulcer; L97.521 Non-pressure chronic ulcer of other part of left foot limited to breakdown of skin; L97.422 Non-pressure chronic ulcer of left heel and midfoot with fat layer exposed; E11.69 Type 2 diabetes mellitus with other specified complication; M86.372 Chronic multifocal osteomyelitis, left ankle and foot; I10 Essential (primary) hypertension; Z89.9 Acquired absence of limb, unspecified; Z79.4 Long term (current) use of insulin; Z79.899 Other long term (current) drug therapy; Y83.5 Amputation of limb(s) as the cause of abnormal reaction of the patient, or of later complication, without mention of misadventure at the time of the procedure
CPT/HCPCS: 15275; Q4121

== ENCOUNTER 2021-11-15 08:30 | Outpatient (CLI) | payer MEDICARE ==
[2021-11-15] MEDS ORDERED: LIDOCAINE (4%) 40 MG/ML TOPICAL SOLN 50 ML BOTTLE TP ONE (09:38)
== END 2021-11-15 08:31 | disposition home or self-care (01) ==
LOC: WOUND 08:30
PROVIDERS: ATTEND Surgery
DX: T87.89 Other complications of amputation stump (principal); E11.621 Type 2 diabetes mellitus with foot ulcer; L97.521 Non-pressure chronic ulcer of other part of left foot limited to breakdown of skin; L97.422 Non-pressure chronic ulcer of left heel and midfoot with fat layer exposed; E11.69 Type 2 diabetes mellitus with other specified complication; M86.372 Chronic multifocal osteomyelitis, left ankle and foot; I10 Essential (primary) hypertension; Z89.9 Acquired absence of limb, unspecified; Z79.4 Long term (current) use of insulin; Z79.899 Other long term (current) drug therapy; Y83.5 Amputation of limb(s) as the cause of abnormal reaction of the patient, or of later complication, without mention of misadventure at the time of the procedure
CPT/HCPCS: 99213; G0463

== ENCOUNTER 2021-12-06 08:00 | Outpatient (CLI) | payer MEDICARE ==
[~2021-12-06 08:00] MED LIST: SILVER NITRATE APPLICATOR 1 EA TP ONE
== END 2021-12-06 08:01 | disposition home or self-care (01) ==
LOC: WOUND 08:00
PROVIDERS: ATTEND Surgery
DX: T87.89 Other complications of amputation stump (principal); E11.621 Type 2 diabetes mellitus with foot ulcer; L97.522 Non-pressure chronic ulcer of other part of left foot with fat layer exposed; L97.422 Non-pressure chronic ulcer of left heel and midfoot with fat layer exposed; E11.69 Type 2 diabetes mellitus with other specified complication; M86.372 Chronic multifocal osteomyelitis, left ankle and foot; I10 Essential (primary) hypertension; Z89.9 Acquired absence of limb, unspecified; Z79.4 Long term (current) use of insulin; Z79.899 Other long term (current) drug therapy; Y83.5 Amputation of limb(s) as the cause of abnormal reaction of the patient, or of later complication, without mention of misadventure at the time of the procedure

== ENCOUNTER 2022-01-03 08:04 | Outpatient (CLI) | payer MEDICARE ==
[2022-01-03] MEDS ORDERED: LIDOCAINE (4%) 40 MG/ML TOPICAL SOLN 50 ML BOTTLE TP ONE (08:19)
== END 2022-01-03 08:05 | disposition home or self-care (01) ==
LOC: WOUND 08:04
PROVIDERS: ATTEND Surgery
DX: T87.89 Other complications of amputation stump (principal); E11.621 Type 2 diabetes mellitus with foot ulcer; L97.528 Non-pressure chronic ulcer of other part of left foot with other specified severity; L97.422 Non-pressure chronic ulcer of left heel and midfoot with fat layer exposed; E11.69 Type 2 diabetes mellitus with other specified complication; M86.372 Chronic multifocal osteomyelitis, left ankle and foot; I10 Essential (primary) hypertension; Z89.9 Acquired absence of limb, unspecified; Z79.4 Long term (current) use of insulin; Z79.899 Other long term (current) drug therapy; Y83.5 Amputation of limb(s) as the cause of abnormal reaction of the patient, or of later complication, without mention of misadventure at the time of the procedure
CPT/HCPCS: 99213; 99214; G0463